=== PATIENT | female | born 1925 | race Caucasian/White ===

== ENCOUNTER 2017-04-25 09:59 | Inpatient (IN) ==
--- NOTE | 2017-04-25 10:04 | Emergency Department Report ---
Asthma HPI - General Stated Complaint: pneumonia Time Seen by Provider: 04/25/17 10:02 - History of Present Illness HPI Narrative: 89-year-old female presents with worsening shortness of breath. She was seen yesterday and diagnosed with left pleural effusion, started on Levaquin and given a gram of Rocephin IM. Today she returned with worsening symptoms and was forwarded to the emergency department for workup. She was initially scheduled to add a thoracocentesis this afternoon to be performed by Dr. Bradford. However she became more ill and was therefore sent to the emergency department. She does feel like she has fever. She certainly has worsening shortness of breath. Denies chest pain at this time, but does feel a fullness in the left side of her chest. She breathes better if she sits upward a little bit. - Related Data Home Medications Medication Instructions Recorded Confirmed Levothyroxine Sodium 25 mcg PO DAILY #28 04/26/15 04/25/17 Mirtazapine 7.5 mg PO HS #14 04/26/15 04/25/17 Sertraline HCl 25 mg PO DAILY #28 04/26/15 04/25/17 Dorzolamide HCl 1 drop BOTH EYES BID #0 drop 04/27/15 04/25/17 Acetaminophen [Acetaminophen Extra 1,000 mg PO Q6H PRN 04/25/17 04/25/17 Strength] Acetaminophen [Acetaminophen Extra 500 mg PO HS 04/25/17 04/25/17 Strength] Brimonidine 0.2% Eye Drops 1 drop EACH EYE BID 04/25/17 04/25/17 [Alphagan 0.2% Eye Drops] Cholecalciferol (Vitamin D3) 2,000 unit PO DAILY 04/25/17 04/25/17 [Vitamin D3] Donepezil HCl [Aricept] 10 mg PO HS 04/25/17 04/25/17 Latanoprost [Xalatan] 1 drop EACH EYE HS 04/25/17 04/25/17 Loratadine [Claritin] 10 mg PO DAILY PRN 04/25/17 04/25/17 Multivitamin with Iron 1 tab PO WB 04/25/17 04/25/17 [Multivitamins with Iron] guaiFENesin [Mucinex] 600 mg PO BID 04/25/17 04/25/17 Previous Rx's Medication Instructions Recorded Albuterol Neb (0.083%) [Proventil 2.5 mg AEROSOL RTQID PRN #60 neb 05/04/17 Neb (0.083%)] Albuterol/Ipratropium [Duoneb] 3 ml AEROSOL RTQID neb 05/04/17 Amlodipine [Norvasc] 2.5 mg PO DAILY tablet 05/04/17 Amoxicillin/Potassium Clav 1 tab PO BIDWM #56 tablet 05/04/17 [Augmentin 875-125 Tablet] Aspirin 1 tab PO DAILY #30 tab 05/04/17 Benzocaine/Menthol Lozenge 1 lozenge MM PRN PRN lozenge 05/04/17 [CEPACOL SORE THROAT Lozenge] Carvedilol 3.125 mg PO BIDWM #60 tab 05/04/17 Furosemide [Lasix] 40 mg PO 0900,1700 tablet 05/04/17 Potassium Chloride [K-Dur] 10 meq PO BIDWM tablet 05/04/17 Allergies Allergy/AdvReac Type Severity Reaction Status Date / Time codeine Allergy Intermediate NAUSEA Verified 05/06/17 16:34 etodolac Allergy Intermediate NAUSEA Verified 05/06/17 16:34 atorvastatin [From Lipitor] Allergy Verified 05/06/17 16:34 gabapentin [From Neurontin] Allergy Verified 05/06/17 16:34 rosuvastatin [From Crestor] Allergy Verified 05/06/17 16:34 tramadol [From Ultram] Allergy Verified 05/06/17 16:34 Review of Systems All systems: reviewed and negative except as stated PFSH Patient Stated Medical History Dementia Yes Glaucoma Yes Hypertension Yes Hx Incontinence Yes Depression Yes Clinic Medical History Pleural effusion on left (Acute Medical) Leukocytosis (Acute Medical) Hypoxia (Acute Medical) Abnormal CT of the chest (Acute Medical) Adult hypothyroidism (Chronic Medical) Depression (Chronic Medical) HTN (hypertension) (Chronic Medical) Dementia (Chronic Medical) Tension headache, chronic (Chronic Medical) Mixed hyperlipidemia (Chronic Medical) Family History: Family History Father , [place] age 74 No problems noted. Mother CVA (cerebral vascular accident) Brother Colon cancer - Social History Smoking status: Never smoker Substance use type: does not use Physical Exam - Limitations Limitations: altered mental status, physical limitation - General General appearance: alert, in no apparent distress - Normal Exams: Cardiovascular:: Regular rate and rhythm, without murmur or gallop, Pulses 2+ all extremities, capillary refill, <2 seconds all extremities Abdomen:: Bowel sounds positive, soft, non-tender, non-distended, no hepatosplenomegaly, masses or bruits noted - Respiratory Respiratory exam: Present: other (diminished breath sounds on left. Possible crackles on left.) Course Vital Signs Temperature 98.4 F 04/25/17 10:00 Pulse Rate 87 04/25/17 10:00 Respiratory Rate 20 04/25/17 10:00 Blood Pressure 105/59 04/25/17 10:00 Pulse Oximetry 87 L 04/25/17 10:00 Temperature 98.3 F 05/04/17 07:00 Pulse Rate 71 05/04/17 08:00 Respiratory Rate 16 05/04/17 10:32 Blood Pressure 153/70 H 05/04/17 07:00 Pulse Oximetry 96 05/04/17 10:32 Dyspnea - MDM Narrative Medical decision making narrative: White count 12.5 with significant left shift. Chest x-ray shows worsening left plural effusion. Patient is obvious is symptomatic and requires thoracentesis. I spoke with Dr. Bradford who will try and work her in this afternoon. He will come by to see her on the medical floor. Spoke with Dr. Bansal who is covering hospitalist service and she graciously agreed to admit the patient and manage along with surgery. Patient will be admitted to the floor. - Lab Data Result diagrams: 05/04/17 04:24 05/04/17 04:24 Lab Results 04/25/17 04/25/17 04/25/17 Range/Units 10:09 10:09 12:18 WBC 21.8 H (4.5-11.0) T/MM3 RBC 4.89 (4.00-5.20) M/MM3 Hgb 15.5 (12-16) GM/DL Hct 47.4 H (36-46) % MCV 96.9 (80-100) UM3 MCH 31.7 (26-34) UUG MCHC 32.7 (31-37) GM/DL RDW Std Deviation 48.2 (36.9-50.2) FL Plt Count 211 (130-400) T/MM3 MPV 11.8 (9.4-12.4) UM3 Immature Gran % (Auto) Not performed Neut % (Auto) Not performed Lymph % (Auto) Not performed Emery % (Auto) Not performed Eos % (Auto) Not performed Baso % (Auto) Not performed Neut # (Auto) Not performed Lymph # (Auto) Not performed Emery # (Auto) Not performed Eos # (Auto) Not performed Baso # (Auto) Not performed Abs Immat Gran (auto) Not performed Neutrophils % (Manual) 82.0 H (33-66) % Band Neutrophils % 2.0 (0-6) % Lymphocytes % (Manual) 7.0 L (23-45) % Monocytes % (Manual) 8.0 (0-9.0) % Basophils % (Manual) 1.0 (0-2) % Neutrophils # (Manual) 17.9 H (1.8-7.7) T/MM3 Band Neutrophils # 0.4 T/MM3 Lymphocytes # (Manual) 1.5 (1-4.8) T/MM3 Monocytes # (Manual) 1.7 H (0-0.8) T/MM3 Basophils # (Manual) 0.2 (0-0.2) T/MM3 RBC Morph Comment Normal Turbidity < 20 (0-20) Sodium 140 (134-144) MEQ/L Potassium 4.5 (3.6-5) MEQ/L Chloride 105 (98-107) MEQ/L Carbon Dioxide 24 (22-30) MEQ/L Anion Gap 11 (5-15) MEQ/L BUN 24.0 H (7-17) MG/DL Creatinine 1.3 H (0.7-1.2) MG/DL GFR Calculation 39 BUN/Creatinine Ratio 19 (6-26) RATIO Glucose 127 H (65-110) MG/DL Calculated Osmolality 275 (261-280) MOSM/KG Calcium 9.3 (8.4-10.2) MG/DL Total Bilirubin 1.10 (0.20-1.30) MG/DL Icterus Index < 2 (0-7) AST 24 (14-36) U/L ALT 27 (9-52) U/L Alkaline Phosphatase 63 (38-126) U/L B-Natriuretic Peptide 1860 H (0-175) pg/mL Total Protein 7.2 (6.3-8.2) G/DL Albumin 4.0 (3.5-5.0) G/DL Globulin 3.2 (2.4-3.6) G/DL Albumin/Globulin Ratio 1.3 (1.1-2.2) RATIO Plasma Lactate 1.6 (0.6-2.2) MMOL/L Specimen Hemolysis < 15 (0-25) Disposition Clinical Impression: pleural effusion Disposition: 02 To [facility] [place] Acute Care Condition: Stable Time of Disposition: 12:07 - Seen By: physician
--- NOTE | 2017-04-25 11:11 | XRay Report ---
INDICATION: dyspnea PROCEDURE: CHEST 2-VIEWS UPRIGHT (PA & LAT) Encounter: Initial COMPARISON: April 24, 2017 FINDINGS: Large left pleural effusion has increased with compressive atelectasis of the majority of the left lung. Minimal aerated lung remaining on the left side. There is mass effect and slight rightward midline shift. Right lung appears clear. No pneumothorax. Heart size and mediastinal contours are obscured by this process. Impression: Worsening large left pleural effusion. Diagnostic and therapeutic thoracentesis is recommended. .
[2017-04-25] MEDS ORDERED: CEFTRIAXONE (ER USE ONLY) 1 GM in NS 100 ML IV ONE (12:15)
[2017-04-25 13:39] VITALS: BMI 25.4
--- NOTE | 2017-04-25 13:39 | History & Physical Report ---
<Lucina Carrillo V - Last Filed: 04/25/17 13:33> History of Present Illness Date: 04/25/17 Chief complaint: Shortness of breath HPI: Patient is an 89-year-old female who currently resides at [facility] under the care of Dr. Funk. She was seen yesterday at [facility] by Linda Ridley APRN for evaluation of fever and hypoxia. Daughter reported. Patient started having a cough on Saturday and begin complaining of some left lower chest wall discomfort. alf staff and patient with room air saturations 85-90%. Outpatient workup was done at the office yesterday. WBC count at that time was 15. Chest x-ray revealed a large left pleural effusion. Dr. Bradford's office was contacted and patient was set up for an outpatient thoracentesis scheduled for tomorrow, 04/26. Patient was given 1 gram of Rocephin and started on oral Levaquin as well as Mucinex. She continued to use as needed oxygen overnight. This morning she was reexamined by Amy and which time she was more short of breath. She was then sent to the emergency room for further evaluation and treatment. WBC today did increase to 21.8, 82% neutrophils, 2% bands. Sodium, potassium normal, renal function slightly elevated with a BUN of 24 and creatinine 1.3, glucose 127. BNP is 1860. Venous lactate 1.6. Blood cultures were obtained in the emergency room and patient was given 1 gram of IV Rocephin for antimicrobial coverage. She only received 1 dose of oral Levaquin prior to arrival. Chest x-ray was repeated today showing a worsening large left pleural effusion. Dr. Bradford was contacted for consultation and possible thoracentesis, the hospitalist services were contacted and accepted patient for inpatient admission for further evaluation and treatment. Is expected that her stay will be greater than 2 overnights. As seen and examined initially. While in the emergency room pending admission. That she is alert and pleasant, however, does have dementia of the majority of information is obtained from her daughter at the bedside. Daughter indicates that symptoms just started this week with a dry cough progressing to shortness of breath over the last 24 hours. To her knowledge. Patient has never had a pleural effusion prior to this. We did discuss advanced directives and she does verify that patient is a do not resuscitate. Review of Systems All systems PM: 10-point ROS was reviewed, no additional remarkable complaints except - Respiratory Respiratory: Present: cough, dyspnea [facility] Medical History Hypothyroidism Depression HTN (hypertension) Dementia Tension headaches Mixed hyperlipidemia Depression Surgical History: Left cataract extraction-2014. Appendectomy. Knee replacement. Colonoscopy- 2008 Family History: Family History Father , [place] age 74 No problems noted. Mother CVA (cerebral vascular accident) Brother Colon cancer - Social History Smoking status: Never smoker Substance use type: does not use Alcohol intake frequency: does not drink Current occupational status: retired Current [facility]: [facility] ([facility]) Social history: Primary care provider, Dr. Funk Medications Home Medications Medication Instructions Recorded Confirmed Type Aspirin [Aspirin EC] 650 mg PO WB #56 04/26/15 04/25/17 History Carvedilol 3.125 mg PO BID #56 04/26/15 04/25/17 History Levothyroxine Sodium 25 mcg PO DAILY #28 04/26/15 04/25/17 History Mirtazapine 7.5 mg PO HS #14 04/26/15 04/25/17 History Sertraline HCl 25 mg PO DAILY #28 04/26/15 04/25/17 History Dorzolamide HCl 1 drop BOTH EYES BID #0 drop 04/27/15 04/25/17 History Acetaminophen [Acetaminophen Extra 1,000 mg PO Q6H PRN 04/25/17 04/25/17 History Strength] Acetaminophen [Acetaminophen Extra 500 mg PO HS 04/25/17 04/25/17 History Strength] Brimonidine 0.2% Eye Drops 1 drop EACH EYE BID 04/25/17 04/25/17 History [Alphagan 0.2% Eye Drops] Cholecalciferol (Vitamin D3) 2,000 unit PO DAILY 04/25/17 04/25/17 History [Vitamin D3] Donepezil HCl [Aricept] 10 mg PO HS 04/25/17 04/25/17 History Latanoprost [Xalatan] 1 drop EACH EYE HS 04/25/17 04/25/17 History Levofloxacin [Levaquin] 500 mg PO DAILY 04/25/17 04/25/17 History Loperamide [Imodium] 2 mg PO DAILY PRN 04/25/17 04/25/17 History Loratadine [Claritin] 10 mg PO DAILY PRN 04/25/17 04/25/17 History Multivitamin with Iron 1 tab PO WB 04/25/17 04/25/17 History [Multivitamins with Iron] guaiFENesin [Mucinex] 600 mg PO BID 04/25/17 04/25/17 History Allergies Allergy/AdvReac Type Severity Reaction Status Date / Time codeine Allergy Intermediate NAUSEA Verified 04/25/17 10:09 etodolac Allergy Intermediate NAUSEA Verified 04/25/17 10:09 atorvastatin [From Lipitor] Allergy Verified 04/25/17 10:12 gabapentin [From Neurontin] Allergy Verified 04/25/17 10:12 rosuvastatin [From Crestor] Allergy Verified 04/25/17 10:12 tramadol [From Ultram] Allergy Verified 04/25/17 10:12 Exam Vital Signs: Temperature 98.4 F 04/25/17 10:00 Pulse Rate 83 04/25/17 13:04 Respiratory Rate 24 04/25/17 13:04 Blood Pressure 133/64 04/25/17 13:04 Pulse Oximetry 91 04/25/17 13:04 - Constitutional Present: mild distress, well nourished, well developed - Routine HEENT Exam Eye: Present: EOMI ENT: Present: mucous membranes moist, dentition normal - Routine Respiratory Exam Comments: Left breath sound absent Right breast sounds- clear/diminished bases - Routine Cardiovascular Exam Present: RRR, S1, S2. Absent: murmur - Routine Abdominal Exam Present: soft, normoactive bowel sounds, non distended. Absent: tenderness - Routine Extremities Exam Present: edema (trace bilateral lower ext) - Routine Skin Exam Present: dry, warm - Routine Neurological Exam Present: alert, oriented X3, CN II-XII intact - Routine Psychiatric Exam Present: normal affect Results - Labs CBC & Chem 7: 04/25/17 10:09 04/25/17 10:09 Assessment and Plan (1) Pleural effusion on left Current visit: Yes Status: Acute (2) Leukocytosis Current visit: Yes Status: Acute Resuscitation Status: Do Not Resuscitate Assessment and Plan: Impression Large left pleural effusion Pneumonia Leukocytosis Respiratory failure with hypoxia Hypothyroidism hypertension Hyperlipidemia Depression Dementia Plan Admit patient to inpatient status under the care of Dr. Kerr for leukocytosis, likely pneumonia, large left pleural effusion Blood cultures and venous lactate were obtained in the emergency room. Patient was started on IV Rocephin 1 gram. She continues to require oxygen to maintain adequate saturations. Scheduled Duoneb QID. Consultations placed to Dr. Bradford for surgical evaluation as she will likely require thoracentesis. Given the size of her left pleural effusion. Will likely need further workup sending pleural fluid for further studies, this is the first effusion patient has ever had. Since only anticoagulation. His aspirin 650 milligrams which she last had yesterday 04/24/17 a.m. Patient is nothing by mouth. PO meds on hold. Monitor patient on Cardiac telemetry. SCDs to bilateral lower ext for DVT prophylaxis Will recheck CBC and BMP tomorrow morning to follow blood counts, renal function and electrolytes. Patient does request to be a do not resuscitate and this order is written. We'll discuss further orders and plan of care with attending, Dr. Kerr At time of discharge medical care will return to primary care provider, Dr. Funk Hospital Course Summary Disclaimer: The visit summary below is not to be considered part of the above Progress Note. Hospital Course: 04/25/17 - admission Impression Large left pleural effusion Pneumonia Leukocytosis Respiratory failure with hypoxia Hypothyroidism hypertension Hyperlipidemia Depression Dementia Plan Admit patient to inpatient status under the care of Dr. Kerr for leukocytosis, likely pneumonia, large left pleural effusion Blood cultures and venous lactate were obtained in the emergency room. Patient was started on IV Rocephin 1 gram. She continues to require oxygen to maintain adequate saturations. Scheduled Duoneb QID. Consultations placed to Dr. Bradford for surgical evaluation as she will likely require thoracentesis. Given the size of her left pleural effusion. Will likely need further workup sending pleural fluid for further studies, this is the first effusion patient has ever had. Since only anticoagulation. His aspirin 650 milligrams which she last had yesterday 04/24/17 a.m. Patient is nothing by mouth. PO meds on hold. Monitor patient on Cardiac telemetry. SCDs to bilateral lower ext for DVT prophylaxis Will recheck CBC and BMP tomorrow morning to follow blood counts, renal function and electrolytes. Patient does request to be a do not resuscitate and this order is written. We'll discuss further orders and plan of care with attending, Dr. Kerr At time of discharge medical care will return to primary care provider, Dr. Funk <Teri Kerr - Last Filed: 04/25/17 18:54> History of Present Illness Date: 04/25/17 [facility] Patient Stated Medical History Dementia Yes Glaucoma Yes Hypertension Yes Hx Incontinence Yes Depression Yes Clinic Medical History Adult hypothyroidism (Chronic Medical) Depression (Chronic Medical) HTN (hypertension) (Chronic Medical) Dementia (Chronic Medical) Tension headache, chronic (Chronic Medical) Mixed hyperlipidemia (Chronic Medical) Family History: Family History Father , [place] age 74 No problems noted. Mother CVA (cerebral vascular accident) Brother Colon cancer Exam Vital Signs: Temperature 99.0 F 04/25/17 18:30 Pulse Rate 94 04/25/17 18:30 Respiratory Rate 18 04/25/17 18:30 Blood Pressure 124/52 04/25/17 18:30 Pulse Oximetry 92 04/25/17 18:30 Height/Weight/BMI: Height 5 ft 5 in Weight 153 lb 3.54 oz Body Mass Index 25.4 Results - Labs CBC & Chem 7: 04/25/17 10:09 04/25/17 10:09 Microbiology Results: Microbiology 04/25/17 15:33 Thoracic Fluid Body Fluid Culture - Preliminary Culture Initiated - Results Pending Assessment and Plan (1) Pleural effusion on left Current visit: Yes Status: Acute (2) Leukocytosis Current visit: Yes Status: Acute Assessment and Plan: I have independently evaluated and examined this patient. I reviewed the chart, the patient's history, and the [facility]PA's documented findings as above. We discussed and formulated the assessment and plan as above with additions as below. The patient is a very pleasant 89-year-old white female who is mildly confused and resides in a custodial. Her history of present illness was reviewed with her family. She is back from undergoing her thoracentesis, she remains on oxygen , she reports that she is hungry. 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 Lungs: No shortness of breath, no dyspnea on exertion, no cough, no sputum production. CV: No chest pain,no palpitations, no swellingof the extremities GI: No nausea, no vomiting, no diarrhea, no constipation,no blood in the stool, no dark-colored stools, no bright red blood per rectum. Last colonoscopy was . : No dysuria, no hematuria, no flank pain. Musculoskeletal: No numbness or tingling in the arms or legs, no weakness. Skin: No skin rash In general, the patient is alert and cooperative with exam, and in no respiratory distress. HEENT: Head is atraumatic, normocephalic, no conjunctival petechiae, no oral thrush, mucous membranes are moist and pink. Lungs: Clear to auscultation without wheezes, crackles or rhonchi, decreased breath sounds on left CV: Regular rate and rhythm without murmur Abdomen: Soft, nontender, bowel sounds are present, there is no guarding no rebound. Extremities: No clubbing, no cyanosis, no edema. Small healing scab on left lateral malleolus Skin: Warm and dry no sign of rash Neuro: Patient is alert Plan: Await further thoracentesis studies Increase activity The patient requires 6 L of oxygen at this time we'll continue to titrate as able. Her immunization status is unclear, the family believes she has had her flu vaccine for this year. It is not known if she has had her Tdap, shingles vaccine , and both pneumococcal vaccines, we'll ask Konrad Jc to check the records tomorrow. Hospital Course Summary Disclaimer: The visit summary below is not to be considered part of the above Progress Note.
[2017-04-25] MEDS: NS 1,000 ML IV SCH (14:15)
[2017-04-25] MEDS: ALBUTEROL/IPRATROPIUM 2.5mg-0.5mg/3ml NEB AEROSOL SCH ×2 (15:07→20:06)
[2017-04-25] MEDS ORDERED: MORPHINE SULFATE 10 MG/ML VIAL IVP PRN (15:33)
--- NOTE | 2017-04-25 15:47 | General Surgery Procedure Note ---
Date of Procedure: 04/25/17 Surgeon: Sanchez Postoperative Diagnosis: left pleural effusion Procedure: left thoracentesis with 800 yellow fluid aspirated and sent for studies Estimated Blood Loss: See Anesthesia Record.
--- NOTE | 2017-04-25 15:48 | Consultation ---
DATE OF CONSULTATION 04/25/2017 FINDINGS Mrs. Ventura is an 89-year-old female whom I was asked to see as a result of her finding of a large pleural effusion. The patient was accompanied today by her son-in-law. Information was obtained from the son-in-law, partially from the patient as well as from her history and physical. [facility]. Recently on rounds she was found to have a component of some fever and hypoxia. She had undergone a chest x-ray and was found to have a left pleural effusion. I was actually notified about this patient yesterday during my office. Yesterday the patient was apparently stable with no difficulty breathing and had a good O2 sat on room air. We had scheduled her electively to undergo a thoracentesis tentatively tomorrow. This morning, however, the nursing staff noted that her O2 sats were beginning to decline. The patient was complaining of more increasing shortness of breath. She was subsequently brought into the emergency room for further evaluation. The patient has been subsequently admitted for further care. The patient apparently has had development of a cough that had begun earlier this week. Patient does have a component of dementia and was not the best historian. She did look to her son-in-law the majority of the interview process for answers. PAST MEDICAL HISTORY, PAST SURGICAL HISTORY, MEDICATIONS, ALLERGIES, SOCIAL HISTORY, FAMILY HISTORY, REVIEW OF SYSTEMS Performed by my nurse practitioner, Talat Ventura APRN. PHYSICAL EXAMINATION Mrs. Ventura is an elderly 89-year-old female who actually appears younger than her stated age. VITAL SIGNS: Temperature 97.8, pulse 89, respirations 20, blood pressure 144/67 , SAO2 91% on 7 L/nasal cannula. HEENT: Normocephalic. Pupils are equally round and react to light and accommodation. CHEST: Auscultation of the chest does reveal markedly diminished breath sounds on the left when compared to the right. The patient was found to have wheezes/ rhonchi bilaterally. HEART: Regular rate and rhythm. Normal S1 and S2 without gallops, murmurs or clicks. ABDOMEN: Palpation of the abdomen reveals it to be soft and nontender. I do not appreciate any evidence for hepatosplenomegaly nor abnormal masses. EXTREMITIES: Without clubbing, cyanosis, or edema. NEURO: Cranial nerves II-XII grossly intact. Patient is without focal motor or sensory deficits. LABORATORY/RADIOGRAPHIC EVALUATION The patient had a CBC and her white count was 21.8. Hemoglobin is 15.5. BNP was obtained and found to be elevated at 1860. CMP was obtained and found to be without marked abnormalities. BUN was elevated at 24.0. Creatinine was 1.3. Radiographically, the patient did have a chest x-ray obtained. Chest x-ray did reveal a worsening left pleural effusion. The entire left hemothorax is essentially filled with fluid. One could see a small amount of the apex of the lung still present. There did appear to be a component of some slight rightward midline shift as a result of this large pleural effusion. ASSESSMENT 89-year-old female who presents with leukocytosis, large left pleural effusion with associated hypoxia. PLAN The patient has been placed empirically on antibiotics. She has received a gram of Rocephin. Would recommend that we at this time proceed with a left thoracentesis from both a diagnostic and therapeutic standpoint. I did discuss with the patient and her son-in-law who was present what a left thoracentesis entailed and its associated risks which included but were not inclusive of hemopneumothorax. They understood and wished proceed. JASON
--- NOTE | 2017-04-25 16:03 | XRay Report ---
Indication: PLEURAL EFFUSION PROCEDURE: XR chest 1V: Encounter: Initial Comparison: April 25, 2017 at 1113 Findings: Interval left-sided thoracentesis with decrease in left effusion. There is a moderate pleural effusion remaining. Slight improvement in aeration of the left upper lobe. No visible pneumothorax. Right lung is stable and clear. Heart size and mediastinal contours are largely obscured by the left-sided effusion. Impression: No pneumothorax following left thoracentesis. .
[2017-04-25] MEDS ORDERED: IOHEXOL 300mg/ml 75ml INJECTION ONE (16:14)
[2017-04-25] MEDS ORDERED: NS 100 ML ONE (16:14)
[2017-04-25] MEDS ORDERED: SALINE FLUSH 10ml SYRINGE ONE (16:15)
[2017-04-25] MEDS ORDERED: MORPHINE SULFATE 2mg INJECTION IVP PRN (16:59)
--- NOTE | 2017-04-25 16:59 | CT Scan Report ---
Indication: post thoracentesis PROCEDURE: CT chest w con: Encounter: Initial Comparison: Chest x-rays from today Technique: Axial CT images were performed through the chest after the administration of intravenous contrast. Coronal and sagittal two-dimensional reformats. Automated Exposure Control and Iterative Reconstruction dose reducing techniques were utilized. Contrast: Omnipaque 300 74 mL Findings: Multiloculated appearing left pleural effusion. No evidence of pleural enhancement to suggest empyema. There is decreased volume overall in the left lung which shows large areas of atelectasis in the left upper and left lower lobes. There is no discrete pulmonary nodule or mass appreciated. The left-sided airways show areas of segmental occlusion in the anterior segment left lower lobe. Mild respiratory motion artifact. No pneumothorax. Trace right pleural effusion with right lower lobe mild atelectasis. Right-sided airways appear patent. The overall amount of undrained fluid on the left is small. No axillary or mediastinal adenopathy. Heart size is normal. No pericardial effusion. The great vessels are grossly normal. The upper abdomen shows a small probable cyst in the right lobe of the liver. No acute findings seen. Bone windows show degenerative change and scoliosis in the spine. Impression: 1. Status post left thoracentesis with a small amount of multiloculated pleural fluid in the left chest. No CT findings to suggest empyema. Scattered areas of atelectatic left lung. 2. Multiple occluded bronchi in the anterior aspect of the left lower lobe. Findings could be due to mucous plugging, aspiration event or endobronchial lesion/mass. Further evaluation with bronchoscopy may be helpful as clinically indicated. No discrete pulmonary masses. .
--- NOTE | 2017-04-25 18:01 | General Surgery Consult Note ---
Consult date: 04/25/17 Attending Physician: Teri Kerr MD Reason for consult: chest tube [facility] Patient Stated Medical History Dementia Yes Glaucoma Yes Hypertension Yes Hx Incontinence Yes Depression Yes Clinic Medical History Adult hypothyroidism (Chronic Medical) Depression (Chronic Medical) HTN (hypertension) (Chronic Medical) Dementia (Chronic Medical) Tension headache, chronic (Chronic Medical) Mixed hyperlipidemia (Chronic Medical) Surgical History: Left cataract extraction-2014. Appendectomy. Bilateral Knee replacement. Colonoscopy- 2008 Family History: Family History Father , [place] age 74 No problems noted. Mother CVA (cerebral vascular accident) Brother Colon cancer Daughter Breast cancer - Social History Smoking status: Never smoker Housing: shelter ([facility]) Current residence: [facility] ([facility]) Medications Home Medications Medication Instructions Recorded Confirmed Type Aspirin [Aspirin EC] 650 mg PO WB #56 04/26/15 04/25/17 History Carvedilol 3.125 mg PO BID #56 04/26/15 04/25/17 History Levothyroxine Sodium 25 mcg PO DAILY #28 04/26/15 04/25/17 History Mirtazapine 7.5 mg PO HS #14 04/26/15 04/25/17 History Sertraline HCl 25 mg PO DAILY #28 04/26/15 04/25/17 History Dorzolamide HCl 1 drop BOTH EYES BID #0 drop 04/27/15 04/25/17 History Acetaminophen [Acetaminophen Extra 1,000 mg PO Q6H PRN 04/25/17 04/25/17 History Strength] Acetaminophen [Acetaminophen Extra 500 mg PO HS 04/25/17 04/25/17 History Strength] Brimonidine 0.2% Eye Drops 1 drop EACH EYE BID 04/25/17 04/25/17 History [Alphagan 0.2% Eye Drops] Cholecalciferol (Vitamin D3) 2,000 unit PO DAILY 04/25/17 04/25/17 History [Vitamin D3] Donepezil HCl [Aricept] 10 mg PO HS 04/25/17 04/25/17 History Latanoprost [Xalatan] 1 drop EACH EYE HS 04/25/17 04/25/17 History Levofloxacin [Levaquin] 500 mg PO DAILY 04/25/17 04/25/17 History Loperamide [Imodium] 2 mg PO DAILY PRN 04/25/17 04/25/17 History Loratadine [Claritin] 10 mg PO DAILY PRN 04/25/17 04/25/17 History Multivitamin with Iron 1 tab PO WB 04/25/17 04/25/17 History [Multivitamins with Iron] guaiFENesin [Mucinex] 600 mg PO BID 04/25/17 04/25/17 History Allergies Allergy/AdvReac Type Severity Reaction Status Date / Time codeine Allergy Intermediate NAUSEA Verified 04/25/17 10:09 etodolac Allergy Intermediate NAUSEA Verified 04/25/17 10:09 atorvastatin [From Lipitor] Allergy Verified 04/25/17 10:12 gabapentin [From Neurontin] Allergy Verified 04/25/17 10:12 rosuvastatin [From Crestor] Allergy Verified 04/25/17 10:12 tramadol [From Ultram] Allergy Verified 04/25/17 10:12 Review of Systems 10-point ROS: negative except for HPI and the following: (obtained mostly from the daughter) - Respiratory Respiratory: Present: difficulty breathing, cough - Gastrointestinal Gastrointestinal: Present: constipation - Musculoskeletal Musculoskeletal: Present: joint pain - Neurological Neurological: Present: muscle weakness (uses a walker), other (dementia) - Vital Signs Last Vital Signs Temp 99.3 F 04/25/17 17:30 Pulse 85 04/25/17 17:30 Resp 22 04/25/17 17:30 BP 116/60 04/25/17 17:30 Pulse Ox 93 04/25/17 17:30 - Laboratory Result Diagrams: 04/25/17 10:09 04/25/17 10:09 - Microbiogy Microbiology 04/25/17 15:33 Thoracic Fluid Body Fluid Culture - Preliminary Culture Initiated - Results Pending General Surgery Results - Results Microbiology: Microbiology 04/25/17 15:33 Thoracic Fluid Body Fluid Culture - Preliminary Culture Initiated - Results Pending Hospital Course Summary Disclaimer: The visit summary below is not to be considered part of the above Progress Note. Hospital Course: 04/25/17 - admission Impression Large left pleural effusion Pneumonia Leukocytosis Respiratory failure with hypoxia Hypothyroidism hypertension Hyperlipidemia Depression Dementia Plan Admit patient to inpatient status under the care of Dr. Kerr for leukocytosis, likely pneumonia, large left pleural effusion Blood cultures and venous lactate were obtained in the emergency room. Patient was started on IV Rocephin 1 gram. She continues to require oxygen to maintain adequate saturations. Scheduled Duoneb QID. Consultations placed to Dr. Bradford for surgical evaluation as she will likely require thoracentesis. Given the size of her left pleural effusion. Will likely need further workup sending pleural fluid for further studies, this is the first effusion patient has ever had. Since only anticoagulation. His aspirin 650 milligrams which she last had yesterday 04/24/17 a.m. Patient is nothing by mouth. PO meds on hold. Monitor patient on Cardiac telemetry. SCDs to bilateral lower ext for DVT prophylaxis Will recheck CBC and BMP tomorrow morning to follow blood counts, renal function and electrolytes. Patient does request to be a do not resuscitate and this order is written. We'll discuss further orders and plan of care with attending, Dr. Kerr At time of discharge medical care will return to primary care provider, Dr. Funk
[2017-04-25] MEDS: DONEPEZIL 10 MG TABLET PO SCH (21:35)
[2017-04-25] MEDS: GUAIFENESIN/P-EPHED 600 MG/60 MG TAB (12HR) PO SCH (21:36)
[2017-04-25] MEDS: BRIMONIDINE 0.2% EYE DROPS 5ml EACH EYE SCH (21:38)
[2017-04-25] MEDS: DORZOLAMIDE 2% EYE DROPS 10ml EACH EYE SCH (21:39)
[2017-04-26] MEDS: NS 1,000 ML IV SCH (02:35)
[2017-04-26] MEDS: LEVOTHYROXINE 25 MCG TABLET PO SCH (06:29)
--- NOTE | 2017-04-26 08:58 | XRay Report ---
INDICATION: pleural effusion PROCEDURE: CHEST 2-VIEWS UPRIGHT (PA & LAT) Encounter: Initial COMPARISON: Chest CT dated April 25, 2017 FINDINGS: Significant opacification of the left hemithorax with only a small amount of aerated left upper lobe remaining. Although the density would suggest a large amount of pleural fluid yesterday's CT revealed much less fluid than would be expected with this appearance and much of the opacity probably represents atelectatic lung. Right lung is grossly clear. No pneumothorax. Heart size and mediastinal contours are obscured by the left-sided process. Impression: Continued significant collapse of large areas of the left lung with only a small amount of aerated lung remaining. Small to moderate amount of left pleural fluid. .
[2017-04-26] MEDS ORDERED: CEFTRIAXONE 1 G in NS 100 ML IV SCH (09:00)
[2017-04-26] MEDS: BRIMONIDINE 0.2% EYE DROPS 5ml EACH EYE SCH ×2 (09:13→20:18)
[2017-04-26] MEDS: DORZOLAMIDE 2% EYE DROPS 10ml EACH EYE SCH ×2 (09:13→20:15)
[2017-04-26] MEDS: GUAIFENESIN/P-EPHED 600 MG/60 MG TAB (12HR) PO SCH ×2 (09:13→20:16)
[2017-04-26] MEDS: SERTRALINE 25 MG TABLET PO SCH (09:13)
[2017-04-26] MEDS: ALBUTEROL/IPRATROPIUM 2.5mg-0.5mg/3ml NEB AEROSOL SCH ×4 (09:16→21:07)
[2017-04-26] MEDS ORDERED: ALBUTEROL 2.5mg/3ml (0.083%) NEB AEROSOL PRN (09:38)
--- NOTE | 2017-04-26 10:04 | Progress Note ---
<Ashtyn Sultana - Last Filed: 04/26/17 10:01> - Date 04/26/17 Subjective: Patient is seen this morning sitting in bed. She had a thoracentesis last evening with removal of 800 cc of fluid. She reports she thinks her breathing is better. The nurse reports that at about 5 AM she noticed that she had audible wheezing and was requiring 6 L to remain above 90% as opposed to the 5 L she was previously on. Patient has no chest pain, nausea or vomiting. Her appetite is good. She is taking po well. Objective Vital signs: Temperature 97.6 F 04/26/17 07:32 Pulse Rate 76 04/26/17 07:32 Respiratory Rate 16 04/26/17 09:16 Blood Pressure 119/55 04/26/17 07:32 Pulse Oximetry 90 04/26/17 09:16 Height/Weight/BMI: Height 1.65 m Weight 70.6 kg Body Mass Index 25.4 - Constitutional Present: no acute distress, well nourished, well developed - Routine HEENT Exam Head: Present: normocephalic - Routine Respiratory Exam Present: wheezes. Absent: respiratory distress Comments: She has diffuse expiratory "snoring"sounds on auscultation with audible wheezing without stethoscope. She has a wheezy/tight sounding cough. - Routine Cardiovascular Exam Present: RRR, S1, S2. Absent: murmur - Routine Abdominal Exam Present: soft, normoactive bowel sounds, non distended. Absent: tenderness - Routine Extremities Exam Present: no edema, normal capillary refill - Routine Skin Exam Present: dry, warm - Routine Neurological Exam Present: alert, normal speech - Routine Lymphatic Exam Lymphatic: Absent: adenopathy - Routine Psychiatric Exam Present: normal affect, cooperative Results - Labs CBC & Chem 7: 04/26/17 04:48 04/26/17 04:48 Microbiology Results: Microbiology 04/25/17 15:33 Thoracic Fluid Gram Stain - Final 04/25/17 15:33 Thoracic Fluid Body Fluid Culture - Preliminary Culture Initiated - Results Pending - Imaging and Cardiology Chest x-ray Additional comments: Chest x-ray 04/26/17 COMPARISON: Chest CT dated April 25, 2017 FINDINGS: Significant opacification of the left hemithorax with only a small amount of aerated left upper lobe remaining. Although the density would suggest a large amount of pleural fluid yesterday's CT revealed much less fluid than would be expected with this appearance and much of the opacity probably represents atelectatic lung. Right lung is grossly clear. No pneumothorax. Heart size and mediastinal contours are obscured by the left-sided process. Impression: Continued significant collapse of large areas of the left lung with only a small amount of aerated lung remaining. Small to moderate amount of left pleural fluid. Assessment and Plan (1) Pleural effusion on left Current visit: Yes Status: Acute (2) Leukocytosis Current visit: Yes Status: Acute Assessment and Plan: Assessment Large left pleural effusion-thoracentesis 04/25/17 Pneumonia Leukocytosis Respiratory failure with hypoxia Hypothyroidism hypertension Hyperlipidemia Depression Dementia Plan DC IV fluids as patient is drinking and eating well. New development of wheezing this morning requiring 6 L O2. Will add prn albuterol treatments and consult Dr. Rascon for his expert opinion. WBC dropped to 17.2 from 21.8 yesterday. Continue ceftriaxone. Hospital Course Summary Disclaimer: The visit summary below is not to be considered part of the above Progress Note. Hospital Course: Impression Large left pleural effusion Pneumonia Leukocytosis Respiratory failure with hypoxia Hypothyroidism hypertension Hyperlipidemia Depression Dementia 04/25/2017-hospital admission Admit patient to inpatient status under the care of Dr. Kerr for leukocytosis, likely pneumonia, large left pleural effusion Blood cultures and venous lactate were obtained in the emergency room. Patient was started on IV Rocephin 1 gram. She continues to require oxygen to maintain adequate saturations. Scheduled Duoneb QID. Consultations placed to Dr. Bradford for surgical evaluation as she will likely require thoracentesis. Given the size of her left pleural effusion. Will likely need further workup sending pleural fluid for further studies, this is the first effusion patient has ever had. Since only anticoagulation. His aspirin 650 milligrams which she last had yesterday 04/24/17 a.m. Patient is nothing by mouth. PO meds on hold. Monitor patient on Cardiac telemetry. SCDs to bilateral lower ext for DVT prophylaxis Will recheck CBC and BMP tomorrow morning to follow blood counts, renal function and electrolytes. Patient does request to be a do not resuscitate and this order is written. We'll discuss further orders and plan of care with attending, Dr. Kerr At time of discharge medical care will return to primary care provider, Dr. Funk 04/26/17 DC IV fluids as patient is drinking and eating well. New development of wheezing this morning requiring 6 L O2. Will add prn albuterol treatments and consult Dr. Rascon for his expert opinion. Continue ceftriaxone. <Teri Kerr - Last Filed: 04/26/17 14:20> - Date 04/26/17 Objective Vital signs: Temperature 98.0 F 04/26/17 11:00 Pulse Rate 74 04/26/17 11:00 Respiratory Rate 16 04/26/17 12:25 Blood Pressure 107/57 04/26/17 11:00 Pulse Oximetry 93 04/26/17 12:25 Height/Weight/BMI: Height 5 ft 5 in Weight 155 lb 10.342 oz Body Mass Index 25.4 Results - Labs CBC & Chem 7: 04/26/17 04:48 04/26/17 04:48 Microbiology Results: Microbiology 04/25/17 15:33 Thoracic Fluid Gram Stain - Final 04/25/17 15:33 Thoracic Fluid Body Fluid Culture - Preliminary Culture Initiated - Results Pending Assessment and Plan (1) Pleural effusion on left Current visit: Yes Status: Acute (2) Leukocytosis Current visit: Yes Status: Acute Assessment and Plan: I have independently evaluated and examined this patient. I reviewed the chart, the patient's history, and the [employer]/PA's documented findings as above. We discussed and formulated the assessment and plan as above with additions as below. The patient was seen at 10 AM. She had just completed breathing treatment at hour ago. She reports her breathing seemed better, she was lying quietly in bed , reports she has a good appetite. In general, the patient is alert pleasantly confused, cooperative with exam, and in no respiratory distress. HEENT: Head is atraumatic, normocephalic, no conjunctival petechiae, no oral thrush, mucous membranes are moist and pink. Lungs:good air movement with insp/exp wheezes, no crackles or rhonchi CV: Regular rate and rhythm without murmur Abdomen: Soft, nontender, bowel sounds are present, there is no guarding no rebound. Extremities: No clubbing, no cyanosis, no edema. Skin: Warm and dry no sign of rash Neuro: Patient is alert Comparison: Chest x-rays from today Technique: Axial CT images were performed through the chest after the administration of intravenous contrast. Coronal and sagittal two-dimensional reformats. Automated Exposure Control and Iterative Reconstruction dose reducing techniques were utilized. Contrast: Omnipaque 300 74 mL Findings: Multiloculated appearing left pleural effusion. No evidence of pleural enhancement to suggest empyema. There is decreased volume overall in the left lung which shows large areas of atelectasis in the left upper and left lower lobes. There is no discrete pulmonary nodule or mass appreciated. The left-sided airways show areas of segmental occlusion in the anterior segment left lower lobe. Mild respiratory motion artifact. No pneumothorax. Trace right pleural effusion with right lower lobe mild atelectasis. Right-sided airways appear patent. The overall amount of undrained fluid on the left is small. No axillary or mediastinal adenopathy. Heart size is normal. No pericardial effusion. The great vessels are grossly normal. The upper abdomen shows a small probable cyst in the right lobe of the liver. No acute findings seen. Bone windows show degenerative change and scoliosis in the spine. Impression: 1. Status post left thoracentesis with a small amount of multiloculated pleural fluid in the left chest. No CT findings to suggest empyema. Scattered areas of atelectatic left lung. 2. Multiple occluded bronchi in the anterior aspect of the left lower lobe. Findings could be due to mucous plugging, aspiration event or endobronchial lesion/mass. Further evaluation with bronchoscopy may be helpful as clinically indicated. No discrete pulmonary masses. Await further pleural fluid results. Will consult Dr. Rascon- she may need a bronchoscopy. Hospital Course Summary Disclaimer: The visit summary below is not to be considered part of the above Progress Note.
--- NOTE | 2017-04-26 10:33 | Operative Note ---
DATE OF PROCEDURE 04/26/2017 SURGEON Brian Bradford MD PREOPERATIVE DIAGNOSIS Symptomatic left pleural effusion. POSTOPERATIVE DIAGNOSIS Symptomatic left pleural effusion. PROCEDURE Left thoracentesis. ANESTHESIA Local. BRIEF HISTORY/INDICATIONS Please refer to consultation note. In summary, Mrs. Ventura is an 89-year- old female who was admitted today as a result of a large left pleural effusion associated with hypoxia. It was recommended that she undergo a thoracentesis from both a diagnostic and therapeutic standpoint. For completeness please refer to notes included in the patient's chart. DESCRIPTION OF PROCEDURE After informed consent was obtained the patient was brought to the preop area and placed in a sitting position upon the gurney. The right lateral chest wall was then percussed as well as auscultated. The level of the diaphragm was then marked out percutaneously as ascertained upon auscultation and percussion. A point parallel to this was then marked out along the left lateral chest wall. Next, a small "x" was marked out percutaneously upon the surface of the skin just above the level of the left hemidiaphragm. Once the left posterior/ lateral chest was prepped and draped in sterile fashion, a formal time-out was then completed. 1% lidocaine was then injected along the left lateral chest wall just above the level of the left hemidiaphragm. A 22-gauge needle was then introduced through the area of analgesia and into the left thorax with aspiration. Straw-colored fluid was obtained. Next, a 5 mm incision was then made overlying the area of analgesia. Thoracentesis needle and catheter was then advanced through the small 5 mm incision and advanced up and over the underlying rib and into the left thorax with aspiration. Straw-colored fluid was obtained. Next, about 800 ml of straw-colored fluid was then aspirated from the left thorax. It was my intuition that the patient likely had significantly more fluid than this as a result of her prior x-ray. The effusion appeared to occupy a majority of the left thorax and it was my clinical intuition the patient likely had about 2.5 liters of fluid within the chest. The catheter was repositioned and additional aspiration was performed. I was unable, however, to get any more fluid out a left thorax. The thoracentesis catheter was subsequently removed. A postprocedure chest x-ray was obtained that did reveal improvement of the pleural effusion but it appeared that there was still persistent effusion present. There was no evidence for pneumothorax. The patient tolerated the procedure without difficulty and was sent back to the medical floor in stable condition. JASON
--- NOTE | 2017-04-26 16:54 | Pulmonology Consult Note ---
<AdaliEsther D - Last Filed: 04/26/17 16:45> History of Present Illness Consult date: 04/26/17 Reason for consult: dyspnea, pleural effusion, abnormal CXR/CT Chief complaint: SOB History of present illness: This is an 89 yo female with a HX of arthritis, dementia, HTN and hypothyroidism. She resides at [facility] and per the daughter she was doing fine on Saturday without SOB but a slight cough. On Saturday she noted increased SOB and cough. She was seen at her PCP's office on Saturday and had a cxr that showed a large pleural effusion and she was set up for an OP thoracentesis but it was decided that she needed to be admitted secondary to hypoxemia and SOB. In the office her WBC was 15 and she was started on antibiotics. She underwent a L thoracentesis with removal of 1L and labs sent for culture and cytology. Currently she is on O2 at 5L per NC and feels her breathing is better, WBC up to 21.8 on admit now 17.2, currently on rocephin and a/a QID with slight dry cough noted. We have been consulted for her pleural effusion and abnormal CT and appreciate the consult. Review of Systems All systems: reviewed and no additional remarkable complaints except as stated - Constitutional Constitutional: Present: as per HPI - Respiratory Respiratory: Present: cough, dyspnea, wheezing, chest congestion PFSH Patient Stated Medical History Dementia Yes Glaucoma Yes Hypertension Yes Hx Incontinence Yes Depression Yes Clinic Medical History Adult hypothyroidism (Chronic Medical) Depression (Chronic Medical) HTN (hypertension) (Chronic Medical) Dementia (Chronic Medical) Tension headache, chronic (Chronic Medical) Mixed hyperlipidemia (Chronic Medical) Surgical History: Left cataract extraction-2014. Appendectomy. Bilateral Knee replacement. Colonoscopy- 2008 Family History: Family History Father , MD age 74 No problems noted. Mother CVA (cerebral vascular accident) Brother Colon cancer - Social History Smoking status: Never smoker Substance use type: does not use Current residence: [facility] ([facility]) Medications Home Medications Medication Instructions Recorded Confirmed Type Aspirin [Aspirin EC] 650 mg PO WB #56 04/26/15 04/25/17 History Carvedilol 3.125 mg PO BID #56 04/26/15 04/25/17 History Levothyroxine Sodium 25 mcg PO DAILY #28 04/26/15 04/25/17 History Mirtazapine 7.5 mg PO HS #14 04/26/15 04/25/17 History Sertraline HCl 25 mg PO DAILY #28 04/26/15 04/25/17 History Dorzolamide HCl 1 drop BOTH EYES BID #0 drop 04/27/15 04/25/17 History Acetaminophen [Acetaminophen Extra 1,000 mg PO Q6H PRN 04/25/17 04/25/17 History Strength] Acetaminophen [Acetaminophen Extra 500 mg PO HS 04/25/17 04/25/17 History Strength] Brimonidine 0.2% Eye Drops 1 drop EACH EYE BID 04/25/17 04/25/17 History [Alphagan 0.2% Eye Drops] Cholecalciferol (Vitamin D3) 2,000 unit PO DAILY 04/25/17 04/25/17 History [Vitamin D3] Donepezil HCl [Aricept] 10 mg PO HS 04/25/17 04/25/17 History Latanoprost [Xalatan] 1 drop EACH EYE HS 04/25/17 04/25/17 History Levofloxacin [Levaquin] 500 mg PO DAILY 04/25/17 04/25/17 History Loperamide [Imodium] 2 mg PO DAILY PRN 04/25/17 04/25/17 History Loratadine [Claritin] 10 mg PO DAILY PRN 04/25/17 04/25/17 History Multivitamin with Iron 1 tab PO WB 04/25/17 04/25/17 History [Multivitamins with Iron] guaiFENesin [Mucinex] 600 mg PO BID 04/25/17 04/25/17 History Allergies Allergy/AdvReac Type Severity Reaction Status Date / Time codeine Allergy Intermediate NAUSEA Verified 04/25/17 10:09 etodolac Allergy Intermediate NAUSEA Verified 04/25/17 10:09 atorvastatin [From Lipitor] Allergy Verified 04/25/17 10:12 gabapentin [From Neurontin] Allergy Verified 04/25/17 10:12 rosuvastatin [From Crestor] Allergy Verified 04/25/17 10:12 tramadol [From Ultram] Allergy Verified 04/25/17 10:12 Exam Vital signs: Temperature 97.7 F 04/26/17 16:15 Pulse Rate 88 04/26/17 16:15 Respiratory Rate 20 04/26/17 16:15 Blood Pressure 146/65 H 04/26/17 16:15 Pulse Oximetry 96 04/26/17 16:15 - Constitutional no acute distress, average body habitus - Routine HEENT Exam Head: Present: normocephalic, atraumatic Eye: Present: PERRL ENT: Present: mucous membranes moist - Routine Neck Exam Present: supple, full ROM - Routine Respiratory Exam Present: diminished air movement Comments: diminished on L - Routine Cardiovascular Exam Present: RRR, no murmur - Routine Abdominal Exam Present: soft, normoactive bowel sounds - Routine Extremities Exam Present: no edema, full ROM - Routine Back/Spine/Pelvis Exam Back/Spine: Present: full ROM - Routine Skin Exam Present: intact, dry - Routine Neurological Exam Present: alert, oriented X3, CN II-XII intact - Routine Psychiatric Exam Present: normal affect Results - Laboratory Findings CBC and BMP: 04/26/17 04:48 04/26/17 04:48 Abnormal lab findings: Abnormal Labs 04/26/17 04/26/17 04:48 04:48 WBC 17.2 H Neutrophils % (Manual) 79.0 H Lymphocytes % (Manual) 7.0 L Neutrophils # (Manual) 13.6 H Monocytes # (Manual) 1.4 H BUN 22.0 H Calcium 8.2 L D - Diagnostic Findings Chest x-ray: image reviewed (04/26 Still L side infiltrate, loculated effusion) Assessment and Plan - Assessment and Plan (1) Hypoxia Current visit: Yes Status: Acute (2) Abnormal CT of the chest Current visit: Yes Status: Acute (3) Pleural effusion on left Current visit: Yes Status: Acute (4) Dementia Current visit: No Status: Chronic - Assessment and Plan Pt currently on O2 at 5L per HFNC, tolerating well. S/p L thoracentesis 04/25 with 1L out, fluid exudative, LDH 524, protien 4.9, glucose 79. CT post thoracentesis noted loculated effusions with atelectatic left lung, do ? L bronchial mass without occlusion. Fluid stain NTD, cx pending, cytology pending. Currently on Rocephin, and a/a QID, may benefit from CT guided drain placement for effusion and possible bronchoscopy. Will continue to follow with you and monitor cultures. <Brian Rascon D - Last Filed: 04/26/17 18:39> PFS Patient Stated Medical History Dementia Yes Glaucoma Yes Hypertension Yes Hx Incontinence Yes Depression Yes Clinic Medical History Adult hypothyroidism (Chronic Medical) Depression (Chronic Medical) HTN (hypertension) (Chronic Medical) Dementia (Chronic Medical) Tension headache, chronic (Chronic Medical) Mixed hyperlipidemia (Chronic Medical) Family History: Family History Father , MD age 74 No problems noted. Mother CVA (cerebral vascular accident) Brother Colon cancer Exam Vital signs: Temperature 97.7 F 04/26/17 16:15 Pulse Rate 88 04/26/17 16:15 Respiratory Rate 22 04/26/17 18:05 Blood Pressure 146/65 H 04/26/17 16:15 Pulse Oximetry 96 04/26/17 18:05 Results - Laboratory Findings CBC and BMP: 04/26/17 04:48 04/26/17 04:48 Abnormal lab findings: Abnormal Labs 04/26/17 04/26/17 04:48 04:48 WBC 17.2 H Neutrophils % (Manual) 79.0 H Lymphocytes % (Manual) 7.0 L Neutrophils # (Manual) 13.6 H Monocytes # (Manual) 1.4 H BUN 22.0 H Calcium 8.2 L D Assessment and Plan - Assessment and Plan patient was examined and pertinent data was reviewed. The notes transcribed by Vesta Bro represent my findings and recommendations. Recommend continued treatment with antibiotics and radiographic followup
--- NOTE | 2017-04-26 17:00 | Progress Note ---
DATE OF SERVICE 04/26/2017 FINDINGS The patient states that this morning she was somewhat short of breath. This afternoon she states that she is breathing better. EXAM VITAL SIGNS: Temperature 98.0, pulse 74, respirations 20, blood pressure 107/57 , SAO2 93% on 7 liters. HEENT: Normocephalic. Pupils are equally round and react to light and accommodation. CHEST: Auscultation of the chest still reveals diminished breath sounds in the left compared to the right. The patient continues to have bilateral rhonchi. HEART: Regular rate and rhythm. ABDOMEN: Soft, nontender. LABORATORY/RADIOGRAPHIC EVALUATION The patient had a chest x-ray again obtained this morning. It does appear that the pleural effusion has already begun to reoccur to some extent. Dictated report was that there continued to be significant collapse of large areas of the left lung with only a small amount of aerated lung remain. Dictated report was that there was a moderate amount of left pleural fluid. I reviewed dictated CT scan report that revealed multiple occluded bronchi in the anterior aspect of the left lower lobe. Findings could be due to mucous plugging, aspiration or endobronchial lesion/mass. ASSESSMENT 89-year-old female with atelectatic left lung of uncertain etiology. Patient with leukocytosis. Status post thoracentesis secondary to pleural effusion. PLAN I do see that Pulmonology has been consulted in regards to further evaluation and recommendations of her left atelectatic lung. Will go ahead and write for incentive spirometry. Would recommend continuing with ongoing breathing treatments. Will go ahead and sign off from a surgical standpoint at this point in time. If any further assistance is needed, please do not hesitate to contact if needed. JASON
[2017-04-26] MEDS: NS FLUSH BAG 500ml IV PRN (19:51)
[2017-04-26] MEDS: AMPICILLIN/SULBACTAM 3 G in NS 100 ML IV SCH (19:54)
[2017-04-26] MEDS: DONEPEZIL 10 MG TABLET PO SCH (20:14)
[2017-04-27] MEDS: AMPICILLIN/SULBACTAM 3 G in NS 100 ML IV SCH ×5 (00:35→18:30)
[2017-04-27] MEDS: LEVOTHYROXINE 25 MCG TABLET PO SCH (06:36)
[2017-04-27] MEDS: ALBUTEROL/IPRATROPIUM 2.5mg-0.5mg/3ml NEB AEROSOL SCH ×4 (07:25→19:55)
[2017-04-27] MEDS: BRIMONIDINE 0.2% EYE DROPS 5ml EACH EYE SCH ×2 (08:21→21:50)
[2017-04-27] MEDS: DORZOLAMIDE 2% EYE DROPS 10ml EACH EYE SCH ×2 (08:21→21:52)
[2017-04-27] MEDS: GUAIFENESIN/P-EPHED 600 MG/60 MG TAB (12HR) PO SCH ×2 (08:21→21:49)
[2017-04-27] MEDS: SERTRALINE 25 MG TABLET PO SCH (08:21)
[2017-04-27] MEDS: BENZOCAINE/MENTHOL SORE THROAT LOZENGE MM PRN ×2 (14:29→18:35)
--- NOTE | 2017-04-27 16:43 | Progress Note ---
- Date 04/27/17 Subjective: The patient is sitting up in a chair. She reports she is doing well. She reports that her cough is looser. It's unclear if it's productive. She remains on 6 L nasal cannula. She does not appear short of breath. Patient has had 3 loose stools today, based on hospital protocol, a C. difficile toxin will be collected. It appears this is most likely diarrhea secondary to antibiotics. Objective Vital signs: Temperature 97.2 F 04/27/17 12:09 Pulse Rate 96 04/27/17 12:09 Respiratory Rate 16 04/27/17 16:03 Blood Pressure 144/70 H 04/27/17 12:09 Pulse Oximetry 97 04/27/17 16:03 Height/Weight/BMI: Height 5 ft 5 in Weight 156 lb 15.506 oz Body Mass Index 25.4 - Additional findings Additional findings: In general, the patient is pleasant and cooperative with exam, and in no respiratory distress. She remains on 6 l nc HEENT: Head is atraumatic, normocephalic, no conjunctival petechiae, no oral thrush, mucous membranes are moist and pink. Lungs: Decreased breath sounds without wheezes, crackles or rhonchi CV: Regular rate and rhythm without murmur Abdomen: Soft, nontender, bowel sounds are present, there is no guarding no rebound. Extremities: No clubbing, no cyanosis, no edema. Skin: Warm and dry no sign of rash Neuro: Patient is alert Results - Labs CBC & Chem 7: 04/26/17 04:48 04/26/17 04:48 Microbiology Results: Microbiology 04/25/17 15:33 Thoracic Fluid Gram Stain - Final 04/25/17 15:33 Thoracic Fluid Body Fluid Culture - Preliminary No Growth After 2 Days 04/25/17 15:33 Fluid Acid Fast Bacilli Culture & Smear - Preliminary Microbiology 04/25/17 15:33 Thoracic Fluid Gram Stain - Final 04/25/17 15:33 Thoracic Fluid Body Fluid Culture - Preliminary No Growth After 2 Days 04/25/17 15:33 Fluid Acid Fast Bacilli Culture & Smear - Preliminary 04/25/17 12:18 Peripheral/Iv Start Blood Culture - Preliminary No Growth After 2 Days 04/25/17 12:17 Peripheral/Iv Start Blood Culture - Preliminary No Growth After 2 Days - Impressions Pleural fluid: pathology shows no malignant cells seen, multiple neutrophils consistent with acute inflammation comment: acute inflammatory cells and a few reactive mesothelial cells are seen. Assessment and Plan (1) Pleural effusion on left Current visit: Yes Status: Acute (2) Leukocytosis Current visit: Yes Status: Acute DVT Prophylaxis: SCD's Resuscitation Status: Do Not Resuscitate Assessment and Plan: Impression: Necrotizing pneumonia with multiple loculated effusions as per discussion with Dr Rascon- status post left thoracentesis with a small amount of multiloculated pleural fluid remaining in the left chest. No CT findings to suggest empyema. Scattered areas of atelectatic left lung and Multiple occluded bronchi in the anterior aspect of the left lower lobe. Findings could be due to mucous plugging, aspiration event or endobronchial lesion/mass. Further evaluation with bronchoscopy may be helpful as clinically indicated. No discrete pulmonary masses. Leukocytosis- improved Respiratory failure with hypoxia Loose stools- suspect antibiotic associated, by hospital protocol- C. dif ordered by nursing Hypothyroidism hypertension Hyperlipidemia Depression Dementia Plan: Continue Amp/ sulbactam- if loose stools continue, consider switching to amoxicillin clavulanate 875 mg by mouth twice a day. If that does not resolve the diarrhea, could continue on oral cefuroxime plus metronidazole for a 4 week course. In addition discussed adding yogurt to the patient's diet. cytology results discussed with patient's daughter who is relieved. Discussed with respiratory therapy, will titrate O2 We'll recheck laboratory in the morning. The patient remains on telemetry. Hospital Course Summary Disclaimer: The visit summary below is not to be considered part of the above Progress Note. Hospital Course: Impression Large left pleural effusion Pneumonia Leukocytosis Respiratory failure with hypoxia Hypothyroidism hypertension Hyperlipidemia Depression Dementia 04/25/2017-hospital admission Admit patient to inpatient status under the care of Dr. Kerr for leukocytosis, likely pneumonia, large left pleural effusion Blood cultures and venous lactate were obtained in the emergency room. Patient was started on IV Rocephin 1 gram. She continues to require oxygen to maintain adequate saturations. Scheduled Duoneb QID. Consultations placed to Dr. Bradford for surgical evaluation as she will likely require thoracentesis. Given the size of her left pleural effusion. Will likely need further workup sending pleural fluid for further studies, this is the first effusion patient has ever had. Since only anticoagulation. His aspirin 650 milligrams which she last had yesterday 04/24/17 a.m. Patient is nothing by mouth. PO meds on hold. Monitor patient on Cardiac telemetry. SCDs to bilateral lower ext for DVT prophylaxis Will recheck CBC and BMP tomorrow morning to follow blood counts, renal function and electrolytes. Patient does request to be a do not resuscitate and this order is written. We'll discuss further orders and plan of care with attending, Dr. Kerr At time of discharge medical care will return to primary care provider, Dr. Funk 04/26/17 DC IV fluids as patient is drinking and eating well. New development of wheezing this morning requiring 6 L O2. Will add prn albuterol treatments and consult Dr. Rascon for his expert opinion. Continue ceftriaxone.
[2017-04-27] MEDS: DONEPEZIL 10 MG TABLET PO SCH (21:50)
[2017-04-28] MEDS: AMPICILLIN/SULBACTAM 3 G in NS 100 ML IV SCH ×4 (01:21→19:14)
[2017-04-28] MEDS: NS FLUSH BAG 500ml IV PRN (01:22)
[2017-04-28] MEDS: LEVOTHYROXINE 25 MCG TABLET PO SCH (06:46)
[2017-04-28] MEDS: SERTRALINE 25 MG TABLET PO SCH (09:12)
[2017-04-28] MEDS: GUAIFENESIN/P-EPHED 600 MG/60 MG TAB (12HR) PO SCH ×2 (09:12→20:26)
[2017-04-28] MEDS: BRIMONIDINE 0.2% EYE DROPS 5ml EACH EYE SCH ×2 (09:13→20:26)
[2017-04-28] MEDS: DORZOLAMIDE 2% EYE DROPS 10ml EACH EYE SCH ×2 (09:13→20:26)
[2017-04-28] MEDS: ALBUTEROL/IPRATROPIUM 2.5mg-0.5mg/3ml NEB AEROSOL SCH ×4 (09:16→21:05)
--- NOTE | 2017-04-28 12:04 | Progress Note ---
- Date 04/28/17 Patient resting comfortably in a chair. Family is present. Multiple questions were asked and discussed. Patient is tolerating her diet. There is some concern as to why she is not improving more quickly than she is. Objective Vital signs: Temperature 98.0 F 04/28/17 07:29 Pulse Rate 87 04/28/17 08:00 Respiratory Rate 20 04/28/17 09:19 Blood Pressure 144/74 H 04/28/17 07:29 Pulse Oximetry 93 04/28/17 09:19 Rhythm: Normal Sinus Rhythm Height/Weight/BMI: Height 1.65 m Weight 72.1 kg Body Mass Index 25.4 - Constitutional Present: no acute distress - Routine HEENT Exam Head: Present: normocephalic - Routine Respiratory Exam Present: wheezes, crackles - Routine Cardiovascular Exam Present: RRR, no murmur - Routine Abdominal Exam Present: soft, normoactive bowel sounds, non distended, non tender Results - Labs CBC & Chem 7: 04/28/17 05:26 04/28/17 05:26 Microbiology Results: Microbiology 04/25/17 15:33 Thoracic Fluid Gram Stain - Final 04/25/17 15:33 Thoracic Fluid Body Fluid Culture - Preliminary No Growth After 2 Days 04/25/17 15:33 Fluid Acid Fast Bacilli Culture & Smear - Preliminary Assessment and Plan (1) Pleural effusion on left Current visit: Yes Status: Acute (2) Leukocytosis Current visit: Yes Status: Acute 04/28/17 12:06 1) Pleural effusion on left Patient is still requiring 4 L oxygen nasal cannula. However she is definitely feeling better. She has not used incentive spirometer. Her impression was that U blew into it. I spent 15 minutes working with her to learn how to properly to inhale through the incentive spirometer. Plan is that she will do 10 breaths every hour and at this point she is quite committed to the plan. Family is present and understands as well. (2) Leukocytosis Recheck CBC CMP and a.m. DVT Prophylaxis: SCD's Resuscitation Status: Do Not Resuscitate Assessment and Plan: (3) necrotizing pneumonia Dr. Rascon is on consult. May need to progress to bronchoscopy if patient is not improving. At this point we'll continue with amp/sulbactam. Recommendation is to consider switching to Augmentin 875 . (4) loose stool Nursing ordered C. difficile screen per hospital protocol. Pending that result, we have recommended that patient get live culture yogurt which will probably resolve the stool issues. Valentino Carlisle M.D. Assessment and Plan: Impression: Necrotizing pneumonia with multiple loculated effusions as per discussion with Dr Rascon- status post left thoracentesis with a small amount of multiloculated pleural fluid remaining in the left chest. No CT findings to suggest empyema. Scattered areas of atelectatic left lung and Multiple occluded bronchi in the anterior aspect of the left lower lobe. Findings could be due to mucous plugging, aspiration event or endobronchial lesion/mass. Further evaluation with bronchoscopy may be helpful as clinically indicated. No discrete pulmonary masses. Leukocytosis- improved Respiratory failure with hypoxia Loose stools- suspect antibiotic associated, by hospital protocol- C. dif ordered by nursing Hypothyroidism hypertension Hyperlipidemia Depression Dementia Plan: Continue Amp/ sulbactam- if loose stools continue, consider switching to amoxicillin clavulanate 875 mg by mouth twice a day. If that does not resolve the diarrhea, could continue on oral cefuroxime plus metronidazole for a 4 week course. In addition discussed adding yogurt to the patient's diet. cytology results discussed with patient's daughter who is relieved. Discussed with respiratory therapy, will titrate O2 We'll recheck laboratory in the morning. The patient remains on telemetry. Hospital Course Summary Disclaimer: The visit summary below is not to be considered part of the above Progress Note. Hospital Course: Impression Large left pleural effusion Pneumonia Leukocytosis Respiratory failure with hypoxia Hypothyroidism hypertension Hyperlipidemia Depression Dementia 04/25/2017-hospital admission Admit patient to inpatient status under the care of Dr. Kerr for leukocytosis, likely pneumonia, large left pleural effusion Blood cultures and venous lactate were obtained in the emergency room. Patient was started on IV Rocephin 1 gram. She continues to require oxygen to maintain adequate saturations. Scheduled Duoneb QID. Consultations placed to Dr. Bradford for surgical evaluation as she will likely require thoracentesis. Given the size of her left pleural effusion. Will likely need further workup sending pleural fluid for further studies, this is the first effusion patient has ever had. Since only anticoagulation. His aspirin 650 milligrams which she last had yesterday 04/24/17 a.m. Patient is nothing by mouth. PO meds on hold. Monitor patient on Cardiac telemetry. SCDs to bilateral lower ext for DVT prophylaxis Will recheck CBC and BMP tomorrow morning to follow blood counts, renal function and electrolytes. Patient does request to be a do not resuscitate and this order is written. We'll discuss further orders and plan of care with attending, Dr. Kerr At time of discharge medical care will return to primary care provider, Dr. Funk 04/26/17 DC IV fluids as patient is drinking and eating well. New development of wheezing this morning requiring 6 L O2. Will add prn albuterol treatments and consult Dr. Rascon for his expert opinion. Continue ceftriaxone. 04/28/17 12:13 04/28/17 12:06 1) Pleural effusion on left Patient is still requiring 4 L oxygen nasal cannula. However she is definitely feeling better. She has not used incentive spirometer. Her impression was that U blew into it. I spent 15 minutes working with her to learn how to properly to inhale through the incentive spirometer. Plan is that she will do 10 breaths every hour and at this point she is quite committed to the plan. Family is present and understands as well. (2) Leukocytosis Recheck CBC CMP and a.m. DVT Prophylaxis: SCD's Resuscitation Status: Do Not Resuscitate Assessment and Plan: (3) necrotizing pneumonia Dr. Rascon is on consult. May need to progress to bronchoscopy if patient is not improving. At this point we'll continue with amp/sulbactam. Recommendation is to consider switching to Augmentin 875 . (4) loose stool Nursing ordered C. difficile screen per hospital protocol. Pending that result, we have recommended that patient get live culture yogurt which will probably resolve the stool issues. Valentino Carlisle M.D.
[2017-04-28] MEDS: CARVEDILOL 3.125 MG TABLET PO SCH (17:43)
[2017-04-28] MEDS: DONEPEZIL 10 MG TABLET PO SCH (20:26)
[2017-04-28] MEDS: SALINE FLUSH 10ml SYRINGE IV PRN (20:32)
[2017-04-29] MEDS: SALINE FLUSH 10ml SYRINGE IV PRN ×2 (00:27→06:45)
[2017-04-29] MEDS: AMPICILLIN/SULBACTAM 3 G in NS 100 ML IV SCH ×4 (00:28→20:53)
[2017-04-29] MEDS: LEVOTHYROXINE 25 MCG TABLET PO SCH ×2 (05:27→05:38)
[2017-04-29] MEDS: ALBUTEROL/IPRATROPIUM 2.5mg-0.5mg/3ml NEB AEROSOL SCH ×4 (07:50→21:10)
[2017-04-29] MEDS: CARVEDILOL 3.125 MG TABLET PO SCH ×2 (08:45→17:06)
[2017-04-29] MEDS: DORZOLAMIDE 2% EYE DROPS 10ml EACH EYE SCH ×2 (08:45→20:50)
[2017-04-29] MEDS: SERTRALINE 25 MG TABLET PO SCH (08:45)
[2017-04-29] MEDS: BRIMONIDINE 0.2% EYE DROPS 5ml EACH EYE SCH ×2 (08:46→20:50)
[2017-04-29] MEDS: GUAIFENESIN/P-EPHED 600 MG/60 MG TAB (12HR) PO SCH (08:52)
--- NOTE | 2017-04-29 10:04 | Pulmonology Progress Note ---
Subjective Interval history: Pt in bed, wakes to voice, states she is doing ok. + cough with minimal sputum. Still on O2 at 5L per NC, and noted some SOB. Exam Vital signs: Temperature 97.2 F 04/29/17 08:08 Pulse Rate 82 04/29/17 08:08 Respiratory Rate 24 04/29/17 08:08 Blood Pressure 150/80 H 04/29/17 08:08 Pulse Oximetry 90 04/29/17 08:08 - Constitutional no acute distress, obese - Routine HEENT Exam Head: Present: normocephalic, atraumatic Eye: Present: EOMI, PERRL - Routine Neck Exam Present: supple, full ROM - Routine Respiratory Exam Present: decreased breath sounds, rhonchi - Routine Cardiovascular Exam Present: RRR, no murmur - Routine Abdominal Exam Present: soft, normoactive bowel sounds - Routine Extremities Exam Present: no edema, full ROM - Routine Back/Spine/Pelvis Exam Back/Spine: Present: full ROM - Routine Skin Exam Present: intact, dry - Routine Neurological Exam Present: alert slightly confused, Hx of dementia - Routine Psychiatric Exam Present: normal affect Progress Note-A&P - Time Spent With Patient Total time spent is greater than 50% in coordination of care (as documented) at patient's floor/unit and/or counseling patient: less than 15 minutes (1) Hypoxia Status: Acute Current Visit: Yes (2) Abnormal CT of the chest Status: Acute Current Visit: Yes (3) Pleural effusion on left Status: Acute Current Visit: Yes (4) Dementia Status: Chronic Current Visit: No - Assessment and Plan Pt currently on O2 at 5L, wean to keeps sats 90-95%. S/p thoracentesis last , will recheck CXR today to assess fluid. Fluid is exudative with negative cx's and cytology to date, likely 2/2 pna. WBC improving on ampicillin and BT's with a/a QID. Will follow closely.
--- NOTE | 2017-04-29 11:01 | XRay Report ---
LOCATION OF DICTATION: [facility] EXAM: XR chest 2V HISTORY: Pleural effusion COMPARISON: April 26, 2017 FINDINGS: There is a persistent large left pleural effusion with subjacent atelectasis or infiltrates. Small right pleural effusion is demonstrated with minimal fluid in the right minor fissure. There is no evidence for pneumothorax. The heart borders are obscured though the heart appears to be enlarged. S-type scoliosis of the thoracolumbar spine and significant spondylosis throughout the spine. IMPRESSION: 1. Stable large left pleural effusion with adjacent atelectasis or infiltrates. 2. Small right pleural effusion. 3. Heart borders are obscured though appears to be enlarged. .
--- NOTE | 2017-04-29 14:30 | Progress Note ---
- Date 04/29/17 Subjective: F/U: Necrotizing pneumonia, left pleural effusion Doing okay. Breathing feels fair. Notes cough at times but not feeling chest congestion. No pain with breathing. Not having chest pressure or pain. Eating well-no nausea or ab pain. Denies mouth pain or pain with swallow. Bowels moving. Urinating well. Strength fair. Denies feeling dizzy or unsteady with positional changes. Objective Vital signs: Temperature 97.2 F 04/29/17 08:08 Pulse Rate 72 04/29/17 12:15 Respiratory Rate 18 04/29/17 12:15 Blood Pressure 140/62 H 04/29/17 12:15 Pulse Oximetry 96 04/29/17 12:15 Rhythm: Normal Sinus Rhythm Height/Weight/BMI: Height 1.65 m Weight 71.6 kg Body Mass Index 25.4 - Constitutional Present: well nourished, well developed, cooperative - Routine HEENT Exam Head: Present: normocephalic, atraumatic Eye: Present: EOMI, PERRL ENT: Present: mucous membranes moist - Routine Respiratory Exam Present: decreased breath sounds (decrease left breath sounds), crackles (Left > right), diminished air movement (Left side). Absent: respiratory distress - Routine Cardiovascular Exam Present: RRR, no murmur - Routine Abdominal Exam Present: soft, normoactive bowel sounds, non distended, non tender. Absent: rebound, guarding - Routine Extremities Exam Present: no edema. Absent: cyanosis, clubbing Comments: SCD in place - Routine Skin Exam Present: dry, warm - Routine Neurological Exam Present: alert, CN II-XII intact, moving all extremities, vision grossly intact , hearing grossly intact. Absent: motor deficit, altered mental status - Routine Psychiatric Exam Present: normal affect, cooperative. Absent: anxious, agitated Results - Labs CBC & Chem 7: 04/29/17 04:27 04/29/17 04:27 Microbiology Results: Microbiology 04/25/17 15:33 Fluid Acid Fast Bacilli Culture & Smear - Preliminary 04/25/17 15:33 Fluid Fungal Culture - Preliminary 04/25/17 15:33 Thoracic Fluid Gram Stain - Final 04/25/17 15:33 Thoracic Fluid Body Fluid Culture - Preliminary No Growth After 3 Days Assessment and Plan (1) Pleural effusion on left Current visit: Yes Status: Acute (2) Leukocytosis Current visit: Yes Status: Acute DVT Prophylaxis: SCD's Resuscitation Status: Do Not Resuscitate Assessment and Plan: Impression Necrotizing pneumonia with multiple loculated effusions as per discussion with Dr Rascon- status post left thoracentesis with a small amount of multiloculated pleural fluid remaining in the left chest. No CT findings to suggest empyema. Scattered areas of atelectatic left lung and Multiple occluded bronchi in the anterior aspect of the left lower lobe. Findings could be due to mucous plugging, aspiration event or endobronchial lesion/mass. Further evaluation with bronchoscopy may be helpful as clinically indicated. No discrete pulmonary masses. Leukocytosis- improved Respiratory failure with hypoxia Loose stools- suspect antibiotic associated, by hospital protocol- C. dif negative Hypothyroidism hypertension Hyperlipidemia Depression Dementia Plan Continue Amp/ sulbactam for antimicrobial coverage. WBC decrease to 14.0. Continue supplemental O2, weaning as able (currently on 6L per NC). Change to Mucinex (from Mucinex D) to minimize potential for agitation. Consult with PT/OT to help improve strength and abilities. Recheck lab in am. Case discussed with CM. Time spent with patient care 25 minutes. - Time spent with patient Time with patient PN: 25 minutes Hospital Course Summary Disclaimer: The visit summary below is not to be considered part of the above Progress Note. Hospital Course: Impression Large left pleural effusion Pneumonia Leukocytosis Respiratory failure with hypoxia Hypothyroidism hypertension Hyperlipidemia Depression Dementia 04/25/2017 - Hospital admission Admit patient to inpatient status under the care of Dr. Kerr for leukocytosis, likely pneumonia, large left pleural effusion. Blood cultures and venous lactate were obtained in the emergency room. Patient was started on IV Rocephin 1 gram. She continues to require oxygen to maintain adequate saturations. Scheduled Duoneb QID. Consultations placed to Dr. Bradford for surgical evaluation as she will likely require thoracentesis. Given the size of her left pleural effusion. Will likely need further workup sending pleural fluid for further studies, this is the first effusion patient has ever had. Since only anticoagulation. His aspirin 650 milligrams which she last had yesterday 04/24/17 a.m. Patient is nothing by mouth. PO meds on hold. Monitor patient on Cardiac telemetry. SCDs to bilateral lower ext for DVT prophylaxis. Will recheck CBC and BMP tomorrow morning to follow blood counts, renal function and electrolytes. Patient does request to be a do not resuscitate and this order is written. At time of discharge medical care will return to primary care provider, Dr. Funk. Thoracentesis done by Dr Bradford -- 800cc fluids removed and sent for culture and cytology. 04/26/17 DC IV fluids as patient is drinking and eating well. New development of wheezing this morning requiring 6 L O2. Will add prn albuterol treatments and consult Dr. Rascon for his expert opinion. Multiple discussions with patient's daughter today, and with Dr. Rascon. Based on the presumption that she has a necrotizing pneumonia, we'll switch to IV ampicillin sulbactam with the intention of changing Trimox clap orally for 4 weeks at the time of discharge next week. 04/27/17 Continue Amp/ sulbactam- if loose stools continue, consider switching to amoxicillin clavulanate 875 mg by mouth twice a day. If that does not resolve the diarrhea, could continue on oral cefuroxime plus metronidazole for a 4 week course. In addition discussed adding yogurt to the patient's diet. Cytology results discussed with patient's daughter who is relieved. Discussed with respiratory therapy, will titrate O2. 04/28/17 Dr Carlisle Pleural effusion on left Patient is still requiring 4 L oxygen nasal cannula. However she is definitely feeling better. She has not used incentive spirometer. Her impression was that U blew into it. I spent 15 minutes working with her to learn how to properly to inhale through the incentive spirometer. Plan is that she will do 10 breaths every hour and at this point she is quite committed to the plan. Family is present and understands as well. Leukocytosis Recheck CBC CMP and a.m. Necrotizing pneumonia Dr. Rascon is on consult. May need to progress to bronchoscopy if patient is not improving. At this point we'll continue with amp/sulbactam. 04/29/17 Jovita Continue Amp/ sulbactam for antimicrobial coverage. WBC decrease to 14.0. Continue supplemental O2, weaning as able (currently on 6L per NC). Change to Mucinex (from Mucinex D) to minimize potential for agitation. Consult with PT/OT to help improve strength and abilities.
[2017-04-29] MEDS: FUROSEMIDE 20 MG/2 ML INJECTION IVP SCH (17:05)
[2017-04-29] MEDS: GUAIFENESIN LA 600 MG TABLET PO SCH (20:51)
[2017-04-29] MEDS: MIRTAZAPINE 15 MG TABLET PO SCH (20:51)
[2017-04-29] MEDS: DONEPEZIL 10 MG TABLET PO SCH (20:52)
[2017-04-30] MEDS: AMPICILLIN/SULBACTAM 3 G in NS 100 ML IV SCH ×4 (02:00→18:45)
[2017-04-30] MEDS: LEVOTHYROXINE 25 MCG TABLET PO SCH (06:15)
[2017-04-30] MEDS: SALINE FLUSH 10ml SYRINGE IV PRN ×2 (07:36→18:45)
[2017-04-30] MEDS: NS FLUSH BAG 500ml IV PRN (07:37)
[2017-04-30] MEDS: ALBUTEROL/IPRATROPIUM 2.5mg-0.5mg/3ml NEB AEROSOL SCH ×4 (08:44→19:54)
[2017-04-30] MEDS: FUROSEMIDE 20 MG/2 ML INJECTION IVP SCH (09:14)
[2017-04-30] MEDS: CARVEDILOL 3.125 MG TABLET PO SCH ×2 (09:14→18:03)
[2017-04-30] MEDS: DORZOLAMIDE 2% EYE DROPS 10ml EACH EYE SCH ×2 (09:15→20:06)
[2017-04-30] MEDS: BRIMONIDINE 0.2% EYE DROPS 5ml EACH EYE SCH ×2 (09:15→20:06)
[2017-04-30] MEDS: MULTI-VITAMIN + MINERAL TABLET PO SCH (09:15)
[2017-04-30] MEDS: SERTRALINE 25 MG TABLET PO SCH (09:16)
[2017-04-30] MEDS: GUAIFENESIN LA 600 MG TABLET PO SCH ×2 (09:16→20:06)
[2017-04-30] MEDS ORDERED: acetaZOLAMIDE 250 MG TABLET PO ONE (11:12)
--- NOTE | 2017-04-30 11:46 | Progress Note ---
- Date 04/30/17 Subjective: F/U: Necrotizing pneumonia, left pleural effusion Doing well today. Breathing okay-no having pain with breathing, little cough/ congestion. Breathing not labored. Nursing working to wean down O2-down to 3.5. Using IS. Eating well. Mouth not sore. No pain with swallow. Denies ab pain or nausea. Stools stable. Strength fair-not feeling weak, but has not been up out of bed much this admission. No f/c. Objective Vital signs: Temperature 98.6 F 04/30/17 07:17 Pulse Rate 72 04/30/17 08:00 Respiratory Rate 24 04/30/17 08:45 Blood Pressure 157/73 H 04/30/17 07:17 Pulse Oximetry 93 04/30/17 11:37 Rhythm: Normal Sinus Rhythm Height/Weight/BMI: Height 1.65 m Weight 70.5 kg Body Mass Index 25.4 - Constitutional Present: well nourished, well developed, average body habitus, cooperative. Absent: combative - Routine HEENT Exam Head: Present: normocephalic, atraumatic Eye: Present: EOMI, PERRL ENT: Present: mucous membranes moist - Routine Respiratory Exam Present: decreased breath sounds (Decrease left breath sounds ), wheezes, diminished air movement (on left ). Absent: respiratory distress - Routine Cardiovascular Exam Present: RRR, no murmur - Routine Abdominal Exam Present: soft, normoactive bowel sounds, non distended, non tender. Absent: guarding - Routine Extremities Exam Present: cyanosis, clubbing, no edema, pulses intact Comments: SCD in place - Routine Musculoskeletal Exam Musculoskeletal: Present: no clubbing or cyanosis, normal strength - Routine Skin Exam Present: dry, warm - Routine Neurological Exam Present: alert, CN II-XII intact, moving all extremities, vision grossly intact , hearing grossly intact. Absent: motor deficit, altered mental status - Routine Psychiatric Exam Present: normal affect, normal thought process, cooperative. Absent: anxious, agitated Results - Labs CBC & Chem 7: 04/30/17 04:12 04/30/17 04:12 Microbiology Results: Microbiology 04/25/17 15:33 Thoracic Fluid Gram Stain - Final 04/25/17 15:33 Thoracic Fluid Body Fluid Culture - Preliminary No Growth After 4 Days 04/25/17 15:33 Fluid Acid Fast Bacilli Culture & Smear - Preliminary 04/25/17 15:33 Fluid Fungal Culture - Preliminary Assessment and Plan (1) Pleural effusion on left Current visit: Yes Status: Acute (2) Leukocytosis Current visit: Yes Status: Acute DVT Prophylaxis: SCD's Resuscitation Status: Do Not Resuscitate Assessment and Plan: Impression Necrotizing pneumonia with multiple loculated effusions as per discussion with Dr Rascon- status post left thoracentesis with a small amount of multiloculated pleural fluid remaining in the left chest. No CT findings to suggest empyema. Scattered areas of atelectatic left lung and Multiple occluded bronchi in the anterior aspect of the left lower lobe. Findings could be due to mucous plugging, aspiration event or endobronchial lesion/mass. Further evaluation with bronchoscopy may be helpful as clinically indicated. No discrete pulmonary masses. Leukocytosis- improving Respiratory failure with hypoxia Loose stools- suspect antibiotic associated, by hospital protocol- C. dif negative Hypokalemia (Not POA) Hypothyroidism hypertension Hyperlipidemia Depression Dementia Plan Continue Amp/ sulbactam for antimicrobial coverage. WBC decrease to 12.4. Continue to wean O2 as able. Encourage IS use. Encourage work with PT/OT to maximize strength and functional status. Continue Lasix to help motivate fluid. Potassium decreased to 3.6 - give 20mEg KCl at noon. Diamox 500mg po x1 as CO2 increased to 32. Clinically improving, responding to antibiotics and treatments. Check CBC in am due to resolving leukocytosis. Repeat BMP in am secondary to diuretic use. Case discussed with CM and patient's daughter. Time spent with patient care 25 minutes. - Time spent with patient Time with patient PN: 25 minutes Hospital Course Summary Disclaimer: The visit summary below is not to be considered part of the above Progress Note. Hospital Course: Impression Large left pleural effusion Pneumonia Leukocytosis Respiratory failure with hypoxia Hypothyroidism hypertension Hyperlipidemia Depression Dementia 04/25/2017 - Hospital admission Admit patient to inpatient status under the care of Dr. Kerr for leukocytosis, likely pneumonia, large left pleural effusion. Blood cultures and venous lactate were obtained in the emergency room. Patient was started on IV Rocephin 1 gram. She continues to require oxygen to maintain adequate saturations. Scheduled DuoNeb QID. Consultations placed to Dr. Bradford for surgical evaluation as she will likely require thoracentesis. Given the size of her left pleural effusion. Will likely need further workup sending pleural fluid for further studies, this is the first effusion patient has ever had. Since only anticoagulation. His aspirin 650 milligrams which she last had yesterday 04/24/17 a.m. Patient is nothing by mouth. PO medications on hold. Monitor patient on Cardiac telemetry. SCDs to bilateral lower ext for DVT prophylaxis. Will recheck CBC and BMP tomorrow morning to follow blood counts, renal function and electrolytes. Patient does request to be a do not resuscitate and this order is written. At time of discharge medical care will return to primary care provider, Dr. Funk. Thoracentesis done by Dr Bradford -- 800cc fluids removed and sent for culture and cytology. 04/26/17 DC IV fluids as patient is drinking and eating well. New development of wheezing this morning requiring 6 L O2. Will add prn albuterol treatments and consult Dr. Rascon for his expert opinion. Multiple discussions with patient's daughter today, and with Dr. Rascon. Based on the presumption that she has a necrotizing pneumonia, we'll switch to IV ampicillin sulbactam with the intention of changing Trimox clap orally for 4 weeks at the time of discharge next week. 04/27/17 Continue Amp/ sulbactam- if loose stools continue, consider switching to amoxicillin clavulanate 875 mg by mouth twice a day. If that does not resolve the diarrhea, could continue on oral cefuroxime plus metronidazole for a 4 week course. In addition discussed adding yogurt to the patient's diet. Cytology results discussed with patient's daughter who is relieved. Discussed with respiratory therapy, will titrate O2. 04/28/17 Dr Carlisle Pleural effusion on left Patient is still requiring 4 L oxygen nasal cannula. However she is definitely feeling better. She has not used incentive spirometer. Her impression was that you blew into it. I spent 15 minutes working with her to learn how to properly to inhale through the incentive spirometer. Plan is that she will do 10 breaths every hour and at this point she is quite committed to the plan. Family is present and understands as well. Leukocytosis Recheck CBC CMP and a.m. Necrotizing pneumonia Dr. Rascon is on consult. May need to progress to bronchoscopy if patient is not improving. At this point we'll continue with amp/sulbactam. 04/29/17 Jovita Continue Amp/ sulbactam for antimicrobial coverage. WBC decrease to 14.0. Continue supplemental O2, weaning as able (currently on 6L per NC). Change to Mucinex (from Mucinex D) to minimize potential for agitation. Consult with PT/OT to help improve strength and abilities. 04/30/17 Continue Amp/ sulbactam for antimicrobial coverage. WBC decrease to 12.4. Continue to wean O2 as able. Encourage IS use. Encourage work with PT/OT to maximize strength and functional status. Continue Lasix to help motivate fluid. Potassium decreased to 3.6 - give 20mEg KCl at noon. Diamox 500mg po x1 as CO2 increased to 32. Clinically improving, responding to antibiotics and treatments.
[2017-04-30] MEDS: AMLODIPINE 2.5 MG TABLET PO SCH (18:03)
[2017-04-30] MEDS: DONEPEZIL 10 MG TABLET PO SCH (20:05)
[2017-04-30] MEDS: MIRTAZAPINE 15 MG TABLET PO SCH (20:05)
[2017-05-01] MEDS: AMPICILLIN/SULBACTAM 3 G in NS 100 ML IV SCH ×4 (00:39→18:44)
[2017-05-01] MEDS: LEVOTHYROXINE 25 MCG TABLET PO SCH (06:12)
[2017-05-01] MEDS: ALBUTEROL/IPRATROPIUM 2.5mg-0.5mg/3ml NEB AEROSOL SCH ×4 (07:53→19:18)
[2017-05-01] MEDS: CARVEDILOL 3.125 MG TABLET PO SCH ×2 (09:35→18:11)
[2017-05-01] MEDS: AMLODIPINE 2.5 MG TABLET PO SCH (09:36)
[2017-05-01] MEDS: BRIMONIDINE 0.2% EYE DROPS 5ml EACH EYE SCH ×2 (09:36→20:29)
[2017-05-01] MEDS: FUROSEMIDE 20 MG/2 ML INJECTION IVP SCH (09:36)
[2017-05-01] MEDS: DORZOLAMIDE 2% EYE DROPS 10ml EACH EYE SCH ×2 (09:36→20:29)
[2017-05-01] MEDS: MULTI-VITAMIN + MINERAL TABLET PO SCH (09:36)
[2017-05-01] MEDS: SERTRALINE 25 MG TABLET PO SCH (09:37)
[2017-05-01] MEDS: SALINE FLUSH 10ml SYRINGE IV PRN ×3 (09:37→19:56)
[2017-05-01] MEDS: GUAIFENESIN LA 600 MG TABLET PO SCH ×2 (09:37→20:29)
--- NOTE | 2017-05-01 09:57 | Pulmonology Progress Note ---
Subjective Interval history: Pt in chair, state her breathing is doing ok. No c/o SOB on abulation, on O2 at 3L per NC. With ambulation this am sats to 89% but back up after resting. cough with minimal sputum. Exam Vital signs: Temperature 96.7 F L 05/01/17 07:00 Pulse Rate 74 05/01/17 07:00 Respiratory Rate 22 05/01/17 07:45 Blood Pressure 155/72 H 05/01/17 07:00 Pulse Oximetry 94 05/01/17 07:45 - Constitutional no acute distress, obese - Routine HEENT Exam Head: Present: normocephalic, atraumatic Eye: Present: EOMI, PERRL - Routine Neck Exam Present: supple, full ROM - Routine Respiratory Exam Present: decreased breath sounds, wheezes - Routine Cardiovascular Exam Present: RRR, no murmur - Routine Abdominal Exam Present: soft, normoactive bowel sounds - Routine Extremities Exam Present: no edema, non tender, full ROM - Routine Back/Spine/Pelvis Exam Back/Spine: Present: full ROM - Routine Skin Exam Present: intact, dry - Routine Neurological Exam Present: alert, CN II-XII intact slightly confused, Hx dimentia - Routine Psychiatric Exam Present: normal affect, normal thought process Progress Note-A&P - Time Spent With Patient Total time spent is greater than 50% in coordination of care (as documented) at patient's floor/unit and/or counseling patient: less than 15 minutes (1) Hypoxia Status: Acute Current Visit: Yes (2) Abnormal CT of the chest Status: Acute Current Visit: Yes (3) Pleural effusion on left Status: Acute Current Visit: Yes (4) Dementia Status: Chronic Current Visit: No - Assessment and Plan Pt currently on O2 at 3L per NC, tolerating, cont to wean to keep sats 90-95%. CXR yesterday with slight improvement in effusion. Continue to follow on antibiotics with unasyn, afebrile, WBC up slightly. Currently on lasix 20mg daily, follow, will check CXR on Saturday. Pt still wheezy, on a/a QID, follow.
--- NOTE | 2017-05-01 11:32 | Progress Note ---
- Date 05/01/17 Subjective: F/U: Necrotizing pneumonia, left pleural effusion Feeling okay overall. Does note some cough, but not harsh or nagging. No pain with breathing. Not having chest wall pain/discomfort from cough. Does not feel she is working hard to breath-no respiratory distress or labor. Appetite stable. Denies pain with chewing or swallowing. No nausea, ab pain, or bowel concerns. Strength improving. No f/c. Objective Vital signs: Temperature 96.7 F L 05/01/17 07:00 Pulse Rate 74 05/01/17 07:00 Respiratory Rate 22 05/01/17 07:45 Blood Pressure 155/72 H 05/01/17 07:00 Pulse Oximetry 94 05/01/17 07:45 Rhythm: Normal Sinus Rhythm Height/Weight/BMI: Height 1.65 m Weight 70.4 kg Body Mass Index 25.4 - Constitutional Present: well nourished, well developed, cooperative. Absent: combative, agitated - Routine HEENT Exam Head: Present: normocephalic, atraumatic Eye: Present: EOMI, PERRL - Routine Respiratory Exam Present: decreased breath sounds (Diminished breath sounds on Left ), diminished air movement. Absent: respiratory distress, stridor, wheezes, crackles - Routine Cardiovascular Exam Present: RRR, no murmur - Routine Abdominal Exam Present: soft, normoactive bowel sounds, non distended, non tender. Absent: guarding - Routine Extremities Exam Present: cyanosis, clubbing, no edema, pulses intact - Routine Musculoskeletal Exam Musculoskeletal: Present: no clubbing or cyanosis, normal strength - Routine Skin Exam Present: intact, dry, warm - Routine Neurological Exam Present: alert, CN II-XII intact, altered mental status, moving all extremities , vision grossly intact, hearing grossly intact. Absent: motor deficit - Routine Psychiatric Exam Present: normal affect, normal thought process, cooperative. Absent: anxious, agitated Results - Labs CBC & Chem 7: 05/01/17 04:34 05/01/17 04:34 Microbiology Results: Microbiology 04/25/17 15:33 Thoracic Fluid Gram Stain - Final 04/25/17 15:33 Thoracic Fluid Body Fluid Culture - Final No Growth After 5 Days 04/25/17 15:33 Fluid Acid Fast Bacilli Culture & Smear - Preliminary 04/25/17 15:33 Fluid Fungal Culture - Preliminary Assessment and Plan (1) Pleural effusion on left Current visit: Yes Status: Acute (2) Leukocytosis Current visit: Yes Status: Acute Assessment and Plan: Impression Necrotizing pneumonia with multiple loculated effusions as per discussion with Dr Rascon- status post left thoracentesis with a small amount of multiloculated pleural fluid remaining in the left chest. No CT findings to suggest empyema. Scattered areas of atelectatic left lung and Multiple occluded bronchi in the anterior aspect of the left lower lobe. Findings could be due to mucous plugging, aspiration event or endobronchial lesion/mass. Further evaluation with bronchoscopy may be helpful as clinically indicated. No discrete pulmonary masses. Leukocytosis- improving Respiratory failure with hypoxia Loose stools- suspect antibiotic associated, by hospital protocol- C. dif negative Hypokalemia (Not POA) Hypothyroidism hypertension Hyperlipidemia Depression Dementia Plan Continue Amp/ sulbactam for antimicrobial coverage. At time of discharge, anticipate amoxicillin clavulanate 875 mg by mouth twice a day for a 4 week course. Continue Lasix to help motivate fluid. Potassium 3.7 - will give 10mEg KCl at noon. CO2 30. Creatinine stable at 0.9 Clinically improving, responding to antibiotics and treatments. O2 needs decreasing - down to 3L per [place]. Will recheck CXR on Saturday to follow effusions response to diuretics. Encourage continue ambulation and therapy. Continue IS. Check CBC in am due to resolving leukocytosis. Repeat BMP in am secondary to diuretic use. Case discussed with CM, pulm, and patient's son. Time spent with patient care 25 minutes. DVT Prophylaxis: SCD's Resuscitation Status: Do Not Resuscitate - Time spent with patient Time with patient PN: 25 minutes Hospital Course Summary Disclaimer: The visit summary below is not to be considered part of the above Progress Note. Hospital Course: Impression Large left pleural effusion Pneumonia Leukocytosis Respiratory failure with hypoxia Hypothyroidism hypertension Hyperlipidemia Depression Dementia 04/25/2017 - Hospital admission Admit patient to inpatient status under the care of Dr. Kerr for leukocytosis, likely pneumonia, large left pleural effusion. Blood cultures and venous lactate were obtained in the emergency room. Patient was started on IV Rocephin 1 gram. She continues to require oxygen to maintain adequate saturations. Scheduled DuoNeb QID. Consultations placed to Dr. Bradford for surgical evaluation as she will likely require thoracentesis. Given the size of her left pleural effusion. Will likely need further workup sending pleural fluid for further studies, this is the first effusion patient has ever had. Since only anticoagulation. His aspirin 650 milligrams which she last had yesterday 04/24/17 a.m. Patient is nothing by mouth. PO medications on hold. Monitor patient on Cardiac telemetry. SCDs to bilateral lower ext for DVT prophylaxis. Will recheck CBC and BMP tomorrow morning to follow blood counts, renal function and electrolytes. Patient does request to be a do not resuscitate and this order is written. At time of discharge medical care will return to primary care provider, Dr. Funk. Thoracentesis done by Dr Bradford -- 800cc fluids removed and sent for culture and cytology. 04/26/17 DC IV fluids as patient is drinking and eating well. New development of wheezing this morning requiring 6 L O2. Will add prn albuterol treatments and consult Dr. Rascon for his expert opinion. Multiple discussions with patient's daughter today, and with Dr. Rascon. Based on the presumption that she has a necrotizing pneumonia, we'll switch to IV ampicillin sulbactam with the intention of changing Trimox clap orally for 4 weeks at the time of discharge next week. 04/27/17 Continue Amp/ sulbactam- if loose stools continue, consider switching to amoxicillin clavulanate 875 mg by mouth twice a day. If that does not resolve the diarrhea, could continue on oral cefuroxime plus metronidazole for a 4 week course. In addition discussed adding yogurt to the patient's diet. Cytology results discussed with patient's daughter who is relieved. Discussed with respiratory therapy, will titrate O2. 04/28/17 Dr Carlisle Pleural effusion on left Patient is still requiring 4 L oxygen nasal cannula. However she is definitely feeling better. She has not used incentive spirometer. Her impression was that you blew into it. I spent 15 minutes working with her to learn how to properly to inhale through the incentive spirometer. Plan is that she will do 10 breaths every hour and at this point she is quite committed to the plan. Family is present and understands as well. Leukocytosis Recheck CBC CMP and a.m. Necrotizing pneumonia Dr. Rascon is on consult. May need to progress to bronchoscopy if patient is not improving. At this point we'll continue with amp/sulbactam. 04/29/17 Jovita Continue Amp/ sulbactam for antimicrobial coverage. WBC decrease to 14.0. Continue supplemental O2, weaning as able (currently on 6L per NC). Change to Mucinex (from Mucinex D) to minimize potential for agitation. Consult with PT/OT to help improve strength and abilities. 04/30/17 Continue Amp/ sulbactam for antimicrobial coverage. WBC decrease to 12.4. Continue to wean O2 as able. Encourage IS use. Encourage work with PT/OT to maximize strength and functional status. Continue Lasix to help motivate fluid. Potassium decreased to 3.6 - give 20mEg KCl at noon. Diamox 500mg po x1 as CO2 increased to 32. Clinically improving, responding to antibiotics and treatments. 05/01/17 Continue Amp/ sulbactam for antimicrobial coverage. At time of discharge, anticipate amoxicillin clavulanate 875 mg by mouth twice a day for a 4 week course. Continue Lasix to help motivate fluid. Potassium 3.7 - will give 10mEg KCl at noon. CO2 30. Creatinine stable at 0.9 Clinically improving, responding to antibiotics and treatments. O2 needs decreasing - down to 3L per NC. Will recheck CXR on Saturday to follow effusions response to diuretics.
[2017-05-01] MEDS: DONEPEZIL 10 MG TABLET PO SCH (20:29)
[2017-05-01] MEDS: MIRTAZAPINE 15 MG TABLET PO SCH (20:29)
[2017-05-02] MEDS: AMPICILLIN/SULBACTAM 3 G in NS 100 ML IV SCH ×5 (00:39→20:29)
[2017-05-02] MEDS: LEVOTHYROXINE 25 MCG TABLET PO SCH (06:01)
[2017-05-02] MEDS: SALINE FLUSH 10ml SYRINGE IV PRN ×3 (06:41→14:30)
[2017-05-02] MEDS: ALBUTEROL/IPRATROPIUM 2.5mg-0.5mg/3ml NEB AEROSOL SCH ×4 (08:21→19:36)
[2017-05-02] MEDS: DORZOLAMIDE 2% EYE DROPS 10ml EACH EYE SCH ×2 (09:31→22:36)
[2017-05-02] MEDS: BRIMONIDINE 0.2% EYE DROPS 5ml EACH EYE SCH ×2 (09:31→22:36)
[2017-05-02] MEDS: AMLODIPINE 2.5 MG TABLET PO SCH (09:32)
[2017-05-02] MEDS: CARVEDILOL 3.125 MG TABLET PO SCH ×2 (09:32→18:43)
[2017-05-02] MEDS: MULTI-VITAMIN + MINERAL TABLET PO SCH (09:32)
[2017-05-02] MEDS: SERTRALINE 25 MG TABLET PO SCH (09:32)
[2017-05-02] MEDS: FUROSEMIDE 20 MG/2 ML INJECTION IVP SCH (09:33)
[2017-05-02] MEDS: GUAIFENESIN LA 600 MG TABLET PO SCH ×2 (09:33→22:06)
[2017-05-02] MEDS ORDERED: FALL RISK - PHARMACY CONSULT MC ONE (13:53)
--- NOTE | 2017-05-02 14:06 | Progress Note ---
- Date 05/02/17 Subjective: Patient just got back to bed from [facility]. Says she thinks she is feeling better. Son and daughter present and planning on dismissal to SNU. Patient denies nausea , constipation/diarrhea, dysuria. Says her appetite is pretty good. Objective Vital signs: Temperature 98.2 F 05/02/17 07:26 Pulse Rate 73 05/02/17 08:00 Respiratory Rate 22 05/02/17 11:52 Blood Pressure 152/69 H 05/02/17 07:26 Pulse Oximetry 93 05/02/17 08:22 Rhythm: Normal Sinus Rhythm Height/Weight/BMI: Height 5 ft 5 in Weight 70.5 kg Body Mass Index 25.4 - Constitutional Present: well nourished, well developed - Routine HEENT Exam Eye: Present: EOMI ENT: Present: mucous membranes moist, dentition normal - Routine Respiratory Exam Present: diminished air movement - Routine Cardiovascular Exam Present: RRR. Absent: murmur - Routine Abdominal Exam Present: soft, normoactive bowel sounds, non distended. Absent: tenderness - Routine Extremities Exam Present: normal capillary refill. Absent: no edema - Routine Skin Exam Present: ecchymosis Comments: left hand ecchymosis - Routine Neurological Exam Present: alert, oriented X3, CN II-XII intact - Routine Psychiatric Exam Present: normal affect Results - Labs CBC & Chem 7: 05/02/17 04:06 05/02/17 04:06 Microbiology Results: Microbiology 04/25/17 15:33 Thoracic Fluid Gram Stain - Final 04/25/17 15:33 Thoracic Fluid Body Fluid Culture - Final No Growth After 5 Days 04/25/17 15:33 Fluid Acid Fast Bacilli Culture & Smear - Preliminary 04/25/17 15:33 Fluid Fungal Culture - Preliminary Assessment and Plan (1) Pleural effusion on left Current visit: Yes Status: Acute (2) Leukocytosis Current visit: Yes Status: Acute Assessment and Plan: Impression Necrotizing pneumonia with multiple loculated effusions as per discussion with Dr Rascon- status post left thoracentesis with a small amount of multiloculated pleural fluid remaining in the left chest. No CT findings to suggest empyema. Scattered areas of atelectatic left lung and Multiple occluded bronchi in the anterior aspect of the left lower lobe. Findings could be due to mucous plugging, aspiration event or endobronchial lesion/mass. Further evaluation with bronchoscopy may be helpful as clinically indicated. No discrete pulmonary masses. Leukocytosis- improving Respiratory failure with hypoxia Loose stools- suspect antibiotic associated, by hospital protocol- C. dif negative Hypokalemia (Not POA) Hypothyroidism hypertension Hyperlipidemia Depression Dementia Plan Continue Amp/ sulbactam for antimicrobial coverage. At time of discharge, anticipate amoxicillin clavulanate 875 mg by mouth twice a day for a 4 week course. Change lasix to po. CO2 to 27. Creatinine stable at 0.9 Clinically improving, responding to antibiotics and treatments. O2 needs still 3L per [place]. CXR on Saturday to follow effusions response to diuretics. Encourage continue ambulation and therapy. Continue IS. Check CBC in am due to resolving leukocytosis. Repeat BMP in am secondary to diuretic use. Case discussed with CM and patient's son and daughter. Hospital Course Summary Disclaimer: The visit summary below is not to be considered part of the above Progress Note. Hospital Course: Impression Large left pleural effusion Pneumonia Leukocytosis Respiratory failure with hypoxia Hypothyroidism hypertension Hyperlipidemia Depression Dementia 04/25/2017 - Hospital admission Admit patient to inpatient status under the care of Dr. Kerr for leukocytosis, likely pneumonia, large left pleural effusion. Blood cultures and venous lactate were obtained in the emergency room. Patient was started on IV Rocephin 1 gram. She continues to require oxygen to maintain adequate saturations. Scheduled DuoNeb QID. Consultations placed to Dr. Bradford for surgical evaluation as she will likely require thoracentesis. Given the size of her left pleural effusion. Will likely need further workup sending pleural fluid for further studies, this is the first effusion patient has ever had. Since only anticoagulation. His aspirin 650 milligrams which she last had yesterday 04/24/17 a.m. Patient is nothing by mouth. PO medications on hold. Monitor patient on Cardiac telemetry. SCDs to bilateral lower ext for DVT prophylaxis. Will recheck CBC and BMP tomorrow morning to follow blood counts, renal function and electrolytes. Patient does request to be a do not resuscitate and this order is written. At time of discharge medical care will return to primary care provider, Dr. Funk. Thoracentesis done by Dr Bradford -- 800cc fluids removed and sent for culture and cytology. 04/26/17 DC IV fluids as patient is drinking and eating well. New development of wheezing this morning requiring 6 L O2. Will add prn albuterol treatments and consult Dr. Rascon for his expert opinion. Multiple discussions with patient's daughter today, and with Dr. Rascon. Based on the presumption that she has a necrotizing pneumonia, we'll switch to IV ampicillin sulbactam with the intention of changing Trimox clap orally for 4 weeks at the time of discharge next week. 04/27/17 Continue Amp/ sulbactam- if loose stools continue, consider switching to amoxicillin clavulanate 875 mg by mouth twice a day. If that does not resolve the diarrhea, could continue on oral cefuroxime plus metronidazole for a 4 week course. In addition discussed adding yogurt to the patient's diet. Cytology results discussed with patient's daughter who is relieved. Discussed with respiratory therapy, will titrate O2. 04/28/17 Dr Carlisle Pleural effusion on left Patient is still requiring 4 L oxygen nasal cannula. However she is definitely feeling better. She has not used incentive spirometer. Her impression was that you blew into it. I spent 15 minutes working with her to learn how to properly to inhale through the incentive spirometer. Plan is that she will do 10 breaths every hour and at this point she is quite committed to the plan. Family is present and understands as well. Leukocytosis Recheck CBC CMP and a.m. Necrotizing pneumonia Dr. Rascon is on consult. May need to progress to bronchoscopy if patient is not improving. At this point we'll continue with amp/sulbactam. 04/29/17 Jovita Continue Amp/ sulbactam for antimicrobial coverage. WBC decrease to 14.0. Continue supplemental O2, weaning as able (currently on 6L per [place]). Change to Mucinex (from Mucinex D) to minimize potential for agitation. Consult with PT/OT to help improve strength and abilities. 04/30/17 Continue Amp/ sulbactam for antimicrobial coverage. WBC decrease to 12.4. Continue to wean O2 as able. Encourage IS use. Encourage work with PT/OT to maximize strength and functional status. Continue Lasix to help motivate fluid. Potassium decreased to 3.6 - give 20mEg KCl at noon. Diamox 500mg po x1 as CO2 increased to 32. Clinically improving, responding to antibiotics and treatments. 05/01/17 Continue Amp/ sulbactam for antimicrobial coverage. At time of discharge, anticipate amoxicillin clavulanate 875 mg by mouth twice a day for a 4 week course. Continue Lasix to help motivate fluid. Potassium 3.7 - will give 10mEg KCl at noon. CO2 30. Creatinine stable at 0.9 Clinically improving, responding to antibiotics and treatments. O2 needs decreasing - down to 3L per [place]. Will recheck CXR on Saturday to follow effusions response to diuretics. 05/02/17 14:19 Continue Amp/ sulbactam. Change lasix to po. Creatinine stable at 0.9 Clinically improving, responding to antibiotics and treatments. O2 needs still 3L per NC. CXR on Saturday to follow effusions response to diuretics. Encourage continue ambulation and therapy. Continue IS. Check CBC in am due to resolving leukocytosis. Repeat BMP in am secondary to diuretic use. Family interested in SNU. Case discussed with CM and patient's son and daughter.
[2017-05-02] MEDS: MIRTAZAPINE 15 MG TABLET PO SCH (22:06)
[2017-05-02] MEDS: DONEPEZIL 10 MG TABLET PO SCH (22:07)
[2017-05-03] MEDS: AMPICILLIN/SULBACTAM 3 G in NS 100 ML IV SCH ×4 (00:47→18:27)
[2017-05-03] MEDS: NS FLUSH BAG 500ml IV PRN (00:48)
[2017-05-03] MEDS: SALINE FLUSH 10ml SYRINGE IV PRN ×2 (00:48→14:15)
[2017-05-03] MEDS: LEVOTHYROXINE 25 MCG TABLET PO SCH (06:41)
[2017-05-03] MEDS: GUAIFENESIN LA 600 MG TABLET PO SCH ×2 (08:05→21:49)
[2017-05-03] MEDS: CARVEDILOL 3.125 MG TABLET PO SCH ×2 (08:05→17:17)
[2017-05-03] MEDS: SERTRALINE 25 MG TABLET PO SCH (08:06)
[2017-05-03] MEDS: AMLODIPINE 2.5 MG TABLET PO SCH (08:06)
[2017-05-03] MEDS: BRIMONIDINE 0.2% EYE DROPS 5ml EACH EYE SCH ×2 (08:06→21:48)
[2017-05-03] MEDS: MULTI-VITAMIN + MINERAL TABLET PO SCH (08:06)
[2017-05-03] MEDS: FUROSEMIDE 20 MG TABLET PO SCH (08:06)
[2017-05-03] MEDS: DORZOLAMIDE 2% EYE DROPS 10ml EACH EYE SCH ×2 (08:07→21:48)
--- NOTE | 2017-05-03 09:07 | Progress Note ---
<Annette Gee D - Last Filed: 05/03/17 09:02> - Date 05/03/17 Subjective: Ghazala was finishing up breakfast. She denies SOA, but sometimes, if she's quiet , she can hear herself breathe. She denies chest pain. No abdominal pain, n/v. She denies constipation or bloating. Her legs have not been edematous. Objective Vital signs: Temperature 97.0 F 05/03/17 07:00 Pulse Rate 76 05/03/17 07:56 Respiratory Rate 17 05/03/17 07:00 Blood Pressure 179/73 H 05/03/17 07:56 Pulse Oximetry 94 05/03/17 07:00 Rhythm: Normal Sinus Rhythm Height/Weight/BMI: Height 1.65 m Weight 69.4 kg Body Mass Index 25.4 - Constitutional Present: no acute distress, well nourished, well developed - Routine HEENT Exam Head: Present: normocephalic Eye: Absent: conjunctival icterus ENT: Present: mucous membranes moist - Routine Respiratory Exam Present: decreased breath sounds, wheezes - Routine Cardiovascular Exam Present: RRR, S1, S2 - Routine Abdominal Exam Present: soft, normoactive bowel sounds, non tender, distended (mild) - Routine Extremities Exam Present: no edema - Routine Musculoskeletal Exam Musculoskeletal: Present: no joint swelling - Routine Skin Exam Present: intact, dry, warm - Routine Neurological Exam Present: alert - Routine Psychiatric Exam Present: normal affect, cooperative Results - Labs CBC & Chem 7: 05/03/17 04:48 05/03/17 04:48 Microbiology Results: Microbiology 04/25/17 15:33 Thoracic Fluid Gram Stain - Final 04/25/17 15:33 Thoracic Fluid Body Fluid Culture - Final No Growth After 5 Days 04/25/17 15:33 Fluid Acid Fast Bacilli Culture & Smear - Preliminary 04/25/17 15:33 Fluid Fungal Culture - Preliminary Assessment and Plan (1) Pleural effusion on left Current visit: Yes Status: Acute (2) Leukocytosis Current visit: Yes Status: Acute Assessment and Plan: Impression Necrotizing pneumonia with multiple loculated effusions as per discussion with Dr Rascon- status post left thoracentesis with a small amount of multiloculated pleural fluid remaining in the left chest. No CT findings to suggest empyema. Scattered areas of atelectatic left lung and multiple occluded bronchi in the anterior aspect of the left lower lobe. Findings could be due to mucous plugging, aspiration event or endobronchial lesion/mass. Further evaluation with bronchoscopy may be helpful as clinically indicated. No discrete pulmonary masses. Leukocytosis- trend overall improving Respiratory failure with hypoxia Loose stools- suspect antibiotic associated - C. diff negative Hypokalemia (Not POA) - resolved Hypothyroidism hypertension Hyperlipidemia Depression Dementia Plan Continue Amp/ sulbactam for antimicrobial coverage. Start Augmentin 875 mg BID x4 weeks at discharge. WBC up slightly to 13.1. Weight is down from 70.5 kg yesterday to 69.4 today; still requiring 4L of O2. Continue oral Lasix. BMP/renal function stable. CXR reviewed - left pleural effusion with increasing opacity to BENITA - clinically not showing more respiratory symptoms (wheezes also noted yesterday). D/W Dr. Whitfield. Hospital Course Summary Disclaimer: The visit summary below is not to be considered part of the above Progress Note. Hospital Course: Impression Large left pleural effusion Pneumonia Leukocytosis Respiratory failure with hypoxia Hypothyroidism hypertension Hyperlipidemia Depression Dementia 04/25/2017 - Hospital admission Admit patient to inpatient status under the care of Dr. Kerr for leukocytosis, likely pneumonia, large left pleural effusion. Blood cultures and venous lactate were obtained in the emergency room. Patient was started on IV Rocephin 1 gram. She continues to require oxygen to maintain adequate saturations. Scheduled DuoNeb QID. Consultations placed to Dr. Bradford for surgical evaluation as she will likely require thoracentesis. Given the size of her left pleural effusion. Will likely need further workup sending pleural fluid for further studies, this is the first effusion patient has ever had. Since only anticoagulation. His aspirin 650 milligrams which she last had yesterday 04/24/17 a.m. Patient is nothing by mouth. PO medications on hold. Monitor patient on Cardiac telemetry. SCDs to bilateral lower ext for DVT prophylaxis. Will recheck CBC and BMP tomorrow morning to follow blood counts, renal function and electrolytes. Patient does request to be a do not resuscitate and this order is written. At time of discharge medical care will return to primary care provider, Dr. Funk. Thoracentesis done by Dr Bradford -- 800cc fluids removed and sent for culture and cytology. 04/26/17 DC IV fluids as patient is drinking and eating well. New development of wheezing this morning requiring 6 L O2. Will add prn albuterol treatments and consult Dr. Rascon for his expert opinion. Multiple discussions with patient's daughter today, and with Dr. Rascon. Based on the presumption that she has a necrotizing pneumonia, we'll switch to IV ampicillin sulbactam with the intention of changing Trimox clap orally for 4 weeks at the time of discharge next week. 04/27/17 Continue Amp/ sulbactam- if loose stools continue, consider switching to amoxicillin clavulanate 875 mg by mouth twice a day. If that does not resolve the diarrhea, could continue on oral cefuroxime plus metronidazole for a 4 week course. In addition discussed adding yogurt to the patient's diet. Cytology results discussed with patient's daughter who is relieved. Discussed with respiratory therapy, will titrate O2. 04/28/17 Dr Carlisle Pleural effusion on left Patient is still requiring 4 L oxygen nasal cannula. However she is definitely feeling better. She has not used incentive spirometer. Her impression was that you blew into it. I spent 15 minutes working with her to learn how to properly to inhale through the incentive spirometer. Plan is that she will do 10 breaths every hour and at this point she is quite committed to the plan. Family is present and understands as well. Leukocytosis Recheck CBC CMP and a.m. Necrotizing pneumonia Dr. Rascon is on consult. May need to progress to bronchoscopy if patient is not improving. At this point we'll continue with amp/sulbactam. 04/29/17 Jovita Continue Amp/ sulbactam for antimicrobial coverage. WBC decrease to 14.0. Continue supplemental O2, weaning as able (currently on 6L per NC). Change to Mucinex (from Mucinex D) to minimize potential for agitation. Consult with PT/OT to help improve strength and abilities. 04/30/17 Continue Amp/ sulbactam for antimicrobial coverage. WBC decrease to 12.4. Continue to wean O2 as able. Encourage IS use. Encourage work with PT/OT to maximize strength and functional status. Continue Lasix to help motivate fluid. Potassium decreased to 3.6 - give 20mEg KCl at noon. Diamox 500mg po x1 as CO2 increased to 32. Clinically improving, responding to antibiotics and treatments. 05/01/17 Continue Amp/ sulbactam for antimicrobial coverage. At time of discharge, anticipate amoxicillin clavulanate 875 mg by mouth twice a day for a 4 week course. Continue Lasix to help motivate fluid. Potassium 3.7 - will give 10mEg KCl at noon. CO2 30. Creatinine stable at 0.9 Clinically improving, responding to antibiotics and treatments. O2 needs decreasing - down to 3L per NC. Will recheck CXR on Saturday to follow effusions response to diuretics. 05/02/17 Continue Amp/ sulbactam. Change lasix to po. Creatinine stable at 0.9 Clinically improving, responding to antibiotics and treatments. O2 needs still 3L per NC. CXR on Saturday to follow effusions response to diuretics. Encourage continue ambulation and therapy. Continue IS. Check CBC in am due to resolving leukocytosis. Repeat BMP in am secondary to diuretic use. Family interested in SNU. Case discussed with CM and patient's son and daughter. 05/03/17 Continue Amp/ sulbactam for antimicrobial coverage. Start Augmentin 875 mg BID x4 weeks at discharge. WBC up slightly to 13.1. Weight is down from 70.5 kg yesterday to 69.4 today; still requiring 4L of O2. Continue oral Lasix. BMP/renal function stable. CXR reviewed - left pleural effusion with increasing opacity to BENITA - clinically not showing more respiratory symptoms (wheezes also noted yesterday). D/W Dr. Whitfield. <Ronak Whitfield IV - Last Filed: 05/03/17 15:14> - Date 05/03/17 Objective Vital signs: Temperature 97.0 F 05/03/17 07:00 Pulse Rate 73 05/03/17 08:09 Respiratory Rate 20 05/03/17 11:48 Blood Pressure 179/73 H 05/03/17 07:56 Pulse Oximetry 95 05/03/17 11:48 Height/Weight/BMI: Height 5 ft 5 in Weight 69.4 kg Body Mass Index 25.4 Results - Labs CBC & Chem 7: 05/03/17 04:48 05/03/17 04:48 Microbiology Results: Microbiology 04/25/17 15:33 Thoracic Fluid Gram Stain - Final 04/25/17 15:33 Thoracic Fluid Body Fluid Culture - Final No Growth After 5 Days 04/25/17 15:33 Fluid Acid Fast Bacilli Culture & Smear - Preliminary 04/25/17 15:33 Fluid Fungal Culture - Preliminary Assessment and Plan (1) Pleural effusion on left Current visit: Yes Status: Acute (2) Leukocytosis Current visit: Yes Status: Acute Assessment and Plan: I have independently interviewed and examined the patient. I have reviewed the medical record. The plan has been discussed and formulated with [employer] as above with the additions below. Patient up to chair. She says she is feeling better. Breath sounds diminished. Heart is regular with murmur. Abdomen is s/nt/nd +bs. No edema. Will increase oral lasix. May be ready for SNU tomorrow. Will d/w pulm. CXR reviewed. BENITA opacity increased. Will increase oral lasix. Add KCl with increased lasix. Lab reviewed Hospital Course Summary Disclaimer: The visit summary below is not to be considered part of the above Progress Note. Hospital Course: Increased Lasix to 40 bid. Added KCl 10 bid. 05/03/17 15:13
--- NOTE | 2017-05-03 09:09 | XRay Report ---
Indication: pleural effusion Procedure: XR chest 2V: Encounter: Subsequent Comparison: 04/29/2017 Technique: AP and lateral radiographs of the chest were obtained. Findings: Lungs and airways: Decreased lung volumes. Persistent hazy opacification of the left hemithorax. No focal right pulmonary airspace consolidation. Grossly stable pulmonary vasculature. Pleura: Unchanged left pleural effusion and pleural fluid within the right minor fissure. No pneumothorax. Heart and mediastinum: The cardiomediastinal silhouette and great vessels appear grossly stable. Osseous structures and soft tissues: No acute osseous abnormality is seen. Impression: Unchanged left pleural effusion with hazy opacification of the left hemithorax. .
[2017-05-03] MEDS: ALBUTEROL/IPRATROPIUM 2.5mg-0.5mg/3ml NEB AEROSOL SCH ×4 (09:13→19:40)
[2017-05-03] MEDS: FUROSEMIDE 40 MG TABLET PO SCH (17:17)
[2017-05-03] MEDS: DONEPEZIL 10 MG TABLET PO SCH (21:49)
[2017-05-03] MEDS: MIRTAZAPINE 15 MG TABLET PO SCH (21:49)
[2017-05-04] MEDS: AMPICILLIN/SULBACTAM 3 G in NS 100 ML IV SCH ×3 (01:15→15:36)
[2017-05-04] MEDS: LEVOTHYROXINE 25 MCG TABLET PO SCH (06:24)
[2017-05-04] MEDS: NS FLUSH BAG 500ml IV PRN (06:24)
[2017-05-04] MEDS: FUROSEMIDE 40 MG TABLET PO SCH (08:05)
[2017-05-04] MEDS: CARVEDILOL 3.125 MG TABLET PO SCH (08:05)
[2017-05-04] MEDS: AMLODIPINE 2.5 MG TABLET PO SCH (08:05)
[2017-05-04] MEDS: MULTI-VITAMIN + MINERAL TABLET PO SCH (08:05)
[2017-05-04] MEDS: SERTRALINE 25 MG TABLET PO SCH (08:06)
[2017-05-04] MEDS: GUAIFENESIN LA 600 MG TABLET PO SCH (08:06)
[2017-05-04] MEDS: DORZOLAMIDE 2% EYE DROPS 10ml EACH EYE SCH (08:08)
[2017-05-04] MEDS: FUROSEMIDE 20 MG TABLET PO SCH (08:08)
[2017-05-04] MEDS: BRIMONIDINE 0.2% EYE DROPS 5ml EACH EYE SCH (08:08)
[2017-05-04] MEDS: ALBUTEROL/IPRATROPIUM 2.5mg-0.5mg/3ml NEB AEROSOL SCH ×2 (08:14→10:32)
[2017-05-04 08:16] VITALS: RESP 16
--- NOTE | 2017-05-04 08:50 | Discharge Summary ---
<MarlenAnnette D - Last Filed: 05/04/17 10:01> Discharge Information Date of admission: 04/25/17 13:20 Anticipated date of discharge: 05/04/17 Attending Physician: Ronak Whitfield IV, MD Primary care physician: Pippa Erickson APRN Consults: Consulting Providers: Brian Rascon John - Discharge Diagnosis (1) Pleural effusion on left Status: Acute (2) Leukocytosis Status: Acute Necrotizing pneumonia with multiple loculated effusions as per discussion with Dr Rascon- status post left thoracentesis with a small amount of multiloculated pleural fluid remaining in the left chest. No CT findings to suggest empyema. Scattered areas of atelectatic left lung and multiple occluded bronchi in the anterior aspect of the left lower lobe. Findings could be due to mucous plugging, aspiration event or endobronchial lesion/mass. Further evaluation with bronchoscopy may be helpful as clinically indicated. No discrete pulmonary masses. Leukocytosis- trend overall improving Respiratory failure with hypoxia - Procedures Procedures: Date of Procedure: 04/25/17 Surgeon: Sanchez Postoperative Diagnosis: left pleural effusion Procedure: left thoracentesis with 800 yellow fluid aspirated and sent for studies - Laboratory Labs: 05/04/17 04:24 05/04/17 04:24 - Microbiology Microbiology 04/25/17 15:33 Fluid Acid Fast Bacilli Culture & Smear - Preliminary 04/25/17 15:33 Fluid Fungal Culture - Preliminary 04/25/17 15:33 Thoracic Fluid Gram Stain - Final 04/25/17 15:33 Thoracic Fluid Body Fluid Culture - Final No Growth After 5 Days - Radiology Radiology: Type of Exam(s): CT chest w con Date of Exam: 04/25/17 Ordering Provider: Brian Bradford MD Indication: post thoracentesis PROCEDURE: CT chest w con: FINDINGS: Multiloculated appearing left pleural effusion. No evidence of pleural enhancement to suggest empyema. There is decreased volume overall in the left lung which shows large areas of atelectasis in the left upper and left lower lobes. There is no discrete pulmonary nodule or mass appreciated. The left -sided airways show areas of segmental occlusion in the anterior segment left lower lobe. Mild respiratory motion artifact. No pneumothorax. Trace right pleural effusion with right lower lobe mild atelectasis. Right-sided airways appear patent. The overall amount of undrained fluid on the left is small. No axillary or mediastinal adenopathy. Heart size is normal. No pericardial effusion. The great vessels are grossly normal. The upper abdomen shows a small probable cyst in the right lobe of the liver. No acute findings seen. Bone windows show degenerative change and scoliosis in the spine. Impression: 1. Status post left thoracentesis with a small amount of multiloculated pleural fluid in the left chest. No CT findings to suggest empyema. Scattered areas of atelectatic left lung. 2. Multiple occluded bronchi in the anterior aspect of the left lower lobe. Findings could be due to mucous plugging, aspiration event or endobronchial lesion/mass. Further evaluation with bronchoscopy may be helpful as clinically indicated. No discrete pulmonary masses. PROCEDURE: CHEST 2-VIEWS UPRIGHT (PA & LAT) Date of Exam: 04/26/17 Ordering Provider: Jasmina Ventura APRN FINDINGS: Significant opacification of the left hemithorax with only a small amount of aerated left upper lobe remaining. Although the density would suggest a large amount of pleural fluid yesterday's CT revealed much less fluid than would be expected with this appearance and much of the opacity probably represents atelectatic lung. Right lung is grossly clear. No pneumothorax. Heart size and mediastinal contours are obscured by the left-sided process. Impression: Continued significant collapse of large areas of the left lung with only a small amount of aerated lung remaining. Small to moderate amount of left pleural fluid. EXAM: XR chest 2V Date of Exam: 04/29/17 Ordering Provider: Esther Bro APRN FINDINGS: There is a persistent large left pleural effusion with subjacent atelectasis or infiltrates. Small right pleural effusion is demonstrated with minimal fluid in the right minor fissure. There is no evidence for pneumothorax. The heart borders are obscured though the heart appears to be enlarged. S-type scoliosis of the thoracolumbar spine and significant spondylosis throughout the spine. IMPRESSION: 1. Stable large left pleural effusion with adjacent atelectasis or infiltrates. 2. Small right pleural effusion. 3. Heart borders are obscured though appears to be enlarged. Type of Exam(s): XR chest 2V Date of Exam: 05/03/17 Ordering Provider: Brian Rascon MD FINDINGS: Lungs and airways: Decreased lung volumes. Persistent hazy opacification of the left hemithorax. No focal right pulmonary airspace consolidation. Grossly stable pulmonary vasculature. Pleura: Unchanged left pleural effusion and pleural fluid within the right minor fissure. No pneumothorax. Heart and mediastinum: The cardiomediastinal silhouette and great vessels appear grossly stable. Osseous structures and soft tissues: No acute osseous abnormality is seen. Impression: Unchanged left pleural effusion with hazy opacification of the left hemithorax. - Pathology Cytology on pleural fluid was negative for malignancy, showed multiple neutrophils consistent with acute inflammation. History of Present Illness HPI: Patient is an 89-year-old female who currently resides at [facility] under the care of Dr. Funk. She was seen at [facility] by Linda Ridley APRN for evaluation of fever and hypoxia. Daughter reported patient started having a cough on Saturday and begin complaining of some left lower chest wall discomfort. assisted staff found room air saturations 85-90%. Outpatient workup was done at the office: WBC count at that time was 15. Chest x -ray revealed a large left pleural effusion. Dr. Bradford's office was contacted and patient was set up for an outpatient thoracentesis scheduled for 04/26/17. Patient was given 1 gram of Rocephin and started on oral Levaquin as well as Mucinex. She continued to use oxygen overnight. This morning she was reexamined by RODRI Mckeon and which time she was more short of breath. She was then sent to the emergency room for further evaluation and treatment. WBC increased to 21.8, with 82% neutrophils, 2% bands. Sodium and potassium were normal, renal function slightly elevated with a BUN of 24 and creatinine 1.3, glucose 127. BNP - 1860. Venous lactate - 1.6. Blood cultures were obtained in the emergency room and patient was given 1 gram of IV Rocephin for antimicrobial coverage. She only received 1 dose of oral Levaquin prior to arrival. Chest x-ray was repeated showing a worsening large left pleural effusion. Dr. Bradford was contacted for consultation and possible thoracentesis, the hospitalist services were contacted and accepted patient for inpatient admission for further evaluation and treatment. Objective Vital signs: Temperature 98.6 F 05/03/17 23:45 Pulse Rate 65 05/04/17 00:00 Respiratory Rate 16 05/04/17 08:14 Blood Pressure 153/75 H 05/03/17 23:45 Pulse Oximetry 93 05/04/17 08:14 Rhythm: Normal Sinus Rhythm Height/Weight/BMI: Height 1.65 m Weight 69.4 kg Body Mass Index 25.4 - Constitutional Present: no acute distress, well nourished, well developed - Routine HEENT Exam Eye: Absent: conjunctival icterus, scleral injection ENT: Present: mucous membranes moist - Routine Respiratory Exam Present: decreased breath sounds (left), wheezes (b/l expiratory wheezes - mild) , crackles (left lung) - Routine Cardiovascular Exam Present: RRR, S1, S2 - Routine Abdominal Exam Present: soft, normoactive bowel sounds - Routine Extremities Exam Present: no edema - Routine Skin Exam Present: dry, warm - Routine Neurological Exam Present: alert - Routine Psychiatric Exam Present: normal affect, normal thought process, cooperative Hospital Course This is a general summary of the patient's hospital course. For more details refer to the complete medical record. Hospital course: IMPRESSION Necrotizing pneumonia with multiple loculated effusions as per discussion with Dr Rascon- status post left thoracentesis with a small amount of multiloculated pleural fluid remaining in the left chest. No CT findings to suggest empyema. Scattered areas of atelectatic left lung and Multiple occluded bronchi in the anterior aspect of the left lower lobe. Findings could be due to mucous plugging, aspiration event or endobronchial lesion/mass. Further evaluation with bronchoscopy may be helpful as clinically indicated. No discrete pulmonary masses. Leukocytosis- improving Respiratory failure with hypoxia Loose stools- suspect antibiotic associated - C. difficile negative Hypokalemia (Not POA) - resolved Hypothyroidism hypertension Hyperlipidemia Depression Dementia HOSPITAL COURSE Ghazala Ventura was admitted on 04/25/17 after outpatient evaluation showed a large left pleural effusion with hypoxia. She was started on Rocephin and IV fluids. IS was strongly encouraged. Dr. Bradford was consulted and she underwent a thoracentesis. Following admission. 800 mL's of pleural fluid was withdrawn and was sent for cytology - report showed inflammatory changes without malignancy. By the following day, she was eating and drinking well and IV fluids were discontinued. However, she began wheezing and oxygen demands increased. Dr. Rascon was consulted. Necrotizing pneumonia was highly suspected and antibiotics were changed to ampicillin sulbactam IV - Dr. Rascon suggested that bronchoscopy may be indicated if the patient fails to show improvement. She developed mild diarrhea following the antibiotic changes. IV Lasix was temporarily given to help motivate fluid. She required a one-time dose of Diamox as CO2 increased at 32 on 04/30/17. Her oxygen needs fluctuated throughout hospital course, ranging from 3 L to 5 L. Serial chest x-ray showed stable large left pleural effusion, but a repeat chest x-ray on the showed increased left upper lobe haziness. At that time, oral Lasix was increased to 40 mg twice a day. Potassium dose was also increased. Renal status remained stable, and on date of discharge, her BUN was 19 and creatinine was 0.9. Daily CBCs showed persistent leukocytosis, WBCs ultimately trending down to 12.5 by day discharge. Clinically, she had bilateral expiratory wheezes and decreased air movement to the left lung on a daily basis, but was not in respiratory distress and was without conversational dyspnea. Family was updated frequently on her progress. She was able to be discharged to halfway at [facility] in stable condition on 05/04/17. Oxygen requirements that morning where 5 L, and we will continue with the increased dose of PO Lasix + KDur. Additionally , she will be on Augmentin 875 mg twice a day 4 weeks. Recheck CBC and BMP on 05/08/17. Follow Linda Ridley APRN on SaturdayMay 06. Call Dr. Rsacon's office to arrange a follow-up as well. Linda was updated on the discharge plan on 05/04/17. Time spent with patient: discharge greater than 30 minutes Discharge Plan - Discharge Disposition Discharge Date: 05/04/17 Disposition: 03 To U Not [facility] (SNF) *Condition: Stable *Reason For Visit: pleural effusion - Discharge Medications *Discharge Medications: New Amlodipine [Norvasc] 2.5 mg PO DAILY tablet Aspirin 1 tab PO DAILY #30 tab Benzocaine/Menthol Lozenge [CEPACOL SORE THROAT Lozenge] 1 lozenge MM PRN PRN lozenge PRN Reason: Sore Throat Potassium Chloride [K-Dur] 10 meq PO BIDWM tablet Albuterol Neb (0.083%) [Proventil Neb (0.083%)] 2.5 mg AEROSOL RTQID PRN #60 neb PRN Reason: Shortness Of Air/Wheezing Albuterol/Ipratropium [Duoneb] 3 ml AEROSOL RTQID neb Amoxicillin/Potassium Clav [Augmentin 875-125 Tablet] 1 tab PO BIDWM #56 tablet Furosemide [Lasix] 40 mg PO 0900,1700 tablet Continue Sertraline HCl 25 mg PO DAILY #28 Loratadine [Claritin] 10 mg PO DAILY PRN PRN Reason: Prn Orders Latanoprost [Xalatan] 1 drop EACH EYE HS Acetaminophen [Acetaminophen Extra Strength] 500 mg PO HS Donepezil HCl [Aricept] 10 mg PO HS guaiFENesin [Mucinex] 600 mg PO BID Multivitamin with Iron [Multivitamins with Iron] 1 tab PO WB Cholecalciferol (Vitamin D3) [Vitamin D3] 2,000 unit PO DAILY Acetaminophen [Acetaminophen Extra Strength] 1,000 mg PO Q6H PRN PRN Reason: Pain Levothyroxine Sodium 25 mcg PO DAILY #28 Mirtazapine 7.5 mg PO HS #14 Dorzolamide HCl 1 drop BOTH EYES BID #0 drop Brimonidine 0.2% Eye Drops [Alphagan 0.2% Eye Drops] 1 drop EACH EYE BID Carvedilol 3.125 mg PO BIDWM #60 tab Discontinued Loperamide [Imodium] 2 mg PO DAILY PRN PRN Reason: Diarrhea Aspirin [Aspirin EC] 650 mg PO WB #56 Levofloxacin [Levaquin] 500 mg PO DAILY - Discharge Packet/Instructions *Diet: Regular *Activity: As tolerated. Use front-wheeled walker. Stand by assist. *Pain Management/Treatment: Tylenol as needed. *Wound Care: Monitor thoracentesis site for infection. Additional Instructions: Supplemental oxygen to maintain saturations >90% (has been requiring 3-5L in the hospital). *Expected Signs/Symptoms: Shortness of breath with activity; wheezing. She developed mild diarrhea after antibiotics were started - encourage yogurt intake. *Notify Physician if: Increased shortness of breath or hypoxia that is unrelieved with PRN DuoNeb and oxygen; chest pain; altered mental status; worsening diarrhea (she's at risk for C. difficile due to prolonged antibiotic course); or any new concerns. *During Business Hours Contact: Contact Linda Ridley APRN @ [facility] *After Business Hours Contact: Call [facility] @ and ask the derrick barge operator to page the on-call provider for Linda. If symptoms are dire please activate 911 for emergent assessment/transfer. *Pending Lab/Results: Follow up w/your PCP Outpatient Orders: BMP - Basic Metabolic - [facility] Time Frame: 4 Days, Location: Determined By Patient CBC w [id number] Time Frame: 4 Days, Location: Determined By Patient - Referrals/Follow Up *Referrals/Follow Up: Linda Ridley APRN [Advanced Practice Nurse] - (SaturdayMAY 06) Brian Rascon MD [Physician] - (CALL FOR APPOINTMENT) - Patient Handouts Patient Handouts: Pleural Effusion (GEN) - Dismissal Complete Discharge Instructions are:: Complete <Ronak Whitfield IV - Last Filed: 05/04/17 10:33> Discharge Information Date of admission: 04/25/17 13:20 Attending Physician: Ronak Whitfield IV, MD Primary care physician: Pippa Erickson APRN Consults: 04/26/17 09:50 Physician Consult [CONS] Routine Consulting Provider: Brian Rascon Reason For Exam: atelectatic left lower lobe Ordering Provider has Notified Labor And Employment Paralegal: Yes 04/30/17 11:45 Doctor [Physician Consult] [CONS] Routine Consulting Provider: Rafa Hagen Reason For Exam: CONTINUITY OF CARE Ordering Provider has Notified Labor And Employment Paralegal: Yes - Discharge Diagnosis (1) Pleural effusion on left Status: Acute (2) Leukocytosis Status: Acute - Laboratory Labs: 05/04/17 04:24 05/04/17 04:24 - Microbiology Microbiology 04/25/17 15:33 Fluid Acid Fast Bacilli Culture & Smear - Preliminary 04/25/17 15:33 Fluid Fungal Culture - Preliminary 04/25/17 15:33 Thoracic Fluid Gram Stain - Final 04/25/17 15:33 Thoracic Fluid Body Fluid Culture - Final No Growth After 5 Days Objective Vital signs: Temperature 98.3 F 05/04/17 07:00 Pulse Rate 71 05/04/17 08:00 Respiratory Rate 16 05/04/17 08:14 Blood Pressure 153/70 H 05/04/17 07:00 Pulse Oximetry 93 05/04/17 08:14 Height/Weight/BMI: Height 5 ft 5 in Weight 67.3 kg Body Mass Index 25.4 Hospital Course This is a general summary of the patient's hospital course. For more details refer to the complete medical record. Hospital course: Necrotizing pneumonia with multiple loculated effusions as per discussion with Dr Rascon- status post left thoracentesis with a small amount of multiloculated pleural fluid remaining in the left chest. No CT findings to suggest empyema. Scattered areas of atelectatic left lung and Multiple occluded bronchi in the anterior aspect of the left lower lobe. Findings could be due to mucous plugging, aspiration event or endobronchial lesion/mass. Further evaluation with bronchoscopy may be helpful as clinically indicated. No discrete pulmonary masses. Leukocytosis- improving Respiratory failure with hypoxia Loose stools- suspect antibiotic associated - C. difficile negative Hypokalemia (Not POA) - resolved Hypothyroidism hypertension Hyperlipidemia Depression Dementia I have independently interviewed and examined the patient. I have reviewed the medical record. The plan has been discussed and formulated with MAIL CARRIERS SUPERVISOR as above with the additions below. Patient says she is feeling pretty well. She thinks she is ready for SNU. NAD, diminished breath sounds, heart rrr, abd s/nt/nd, no edema Augmentin for 4 weeks. d/w Dr. Rascon. Continue lasix 40 bid. Labs reviewed. Ready for dismissal to SNU.
[2017-05-04 09:12] VITALS: PULSE 71
[2017-05-04 09:40] VITALS: BP 153/70; TEMP 98.3
--- NOTE | 2017-05-04 10:06 | Extended Care Facility Orders ---
Admission Orders Admit to:: Care Home Allergies/Adverse Reactions: Allergies codeine Allergy (Intermediate, Verified 04/25/17 10:09) NAUSEA etodolac Allergy (Intermediate, Verified 04/25/17 10:09) NAUSEA atorvastatin [From Lipitor] Allergy (Verified 04/25/17 10:12) gabapentin [From Neurontin] Allergy (Verified 04/25/17 10:12) rosuvastatin [From Crestor] Allergy (Verified 04/25/17 10:12) tramadol [From Ultram] Allergy (Verified 04/25/17 10:12) Admitting Diagnosis: Necrotizing pneumonia; pleural effusion Admitting Physician: Ronak Whitfield IV, MD Attending Physician: Ronak Whitfield IV, MD Code Status: Do Not Resuscitate Anticiapted Length of Stay: 30 days or less Rehab Potential: good Rehab Prognosis: good Diet: Regular Diet [DIET] Wound/Incision Care: Monitor thoracentesis site for redness, drainage, warmth, and swelling. May use Facility Protocol or Standing Orders: Yes Evaluations/Treatment: PT, OT, RT, as needed Care Home Certification: I certify that SNF services are required to be given on an Inpatient basis because of the patient's need for group home care on a continuing basis for the condition(s) for which she received inpatient hospital services prior to her transfer to the SNF. SNF inpatient care is necessary for the following reasons Indication for Care Home: Chest Pain Assessment/Care (titrate oxygen to maintain saturations >90%. She's required 3-5L of oxygen during hospitalization. ) - Additional Information In Event of Arrest: Do Not Start CPR Resident is Aware of Diagnosis: Yes (Family also aware) Laboratory/Radiology: Check CBC and BMP on 05/08/17 - fax to Linda Ridley APRN Referrals: Brian Rascon MD [Physician] - (CALL FOR APPOINTMENT) Linda Ridley APRN [Advanced Practice Nurse] - (SaturdayMAY 06)
[2017-05-04 10:36] VITALS: O2SAT 96
== END 2017-05-04 13:50 | DRG 177 ==
LOC: ED 09:59 → SUATTDRO 13:20 → MED 13:20
PROVIDERS: ADMIT Internal Medicine Infectious Disease; ATTEND Hospitalist